=== PATIENT | female | born 1960 | race Two or more races ===

== ENCOUNTER → 2024-08-01 | Outpatient (CLI) | payer OTHER, MEDICAID | END | disposition home or self-care (01) | LOC: Rad HDHVI 14:33 | PROVIDERS: ATTEND Internal Medicine Cardiovascular Disease | DX: I10 Essential (primary) hypertension (principal) | CPT/HCPCS: 93880; 93925 ==

== ENCOUNTER → 2024-08-03 | Outpatient (CLI) | payer OTHER, MEDICAID | END | disposition home or self-care (01) | LOC: Rad HDHVI 13:45 | PROVIDERS: ATTEND Internal Medicine Cardiovascular Disease | DX: Z01.818 Encounter for other preprocedural examination (principal) | CPT/HCPCS: 93306 ==

== ENCOUNTER → 2024-08-15 | Outpatient (CLI) | payer OTHER, MEDICAID ==
[~2024-08-15] VITALS: Ht 152.4 cm; Wt 63.5 kg
[~2024-08-15] MED LIST: ADENOSINE 53 MG in GIVE UN-DILUTED 0 ML IV ONE; ADENOSINE 90 MG/30 ML INJ IV ONE; AML5T PO; B-CO-5 OR; CEPH500C PO; DOXE25CA2 PO; ERGO1CAP23 PO; FERR1TAB17 PO; FURO1TAB31 PO; GENT0.1C3 TOP; HEP1I IV; INSLANTI SC; INSU100I54 SC; LACT10PA2 PO; LOSA-535 PO; METO25TA93 PO
== END | disposition home or self-care (01) ==
LOC: Rad HDHVI 13:40
PROVIDERS: ATTEND Internal Medicine Cardiovascular Disease
DX: I10 Essential (primary) hypertension (principal); E11.9 Type 2 diabetes mellitus without complications; Z13.9 Encounter for screening, unspecified
CPT/HCPCS: 78452; 93005; 93017; A9500; J0153; 96374; 96375

== ENCOUNTER → 2024-09-10 | Outpatient (CLI) | payer OTHER, MEDICAID ==
[~2024-09-10] MED LIST changes: -ADENOSINE 53 MG in GIVE UN-DILUTED 0 ML IV ONE; -ADENOSINE 90 MG/30 ML INJ IV ONE
[2024-09-10] MEDS: MIDAZOLAM HCL 2MG/2ML 2ml VIAL (1mg/ml) ONE (15:35)
[2024-09-10] MEDS: fentaNYL CITRATE 100 MCG/2 ML VL ONE (15:35)
--- NOTE | 2024-09-10 16:06 | DVH ---
Procedure: CT CHEST WITHOUT CONTRAST Reason for study/Clinical History: KIDNEY TRANSPLANT LIST REQUIREMENT Comparison Study: None available at time of dictation. Exam Date: 09/10/2024 03:08 PM TECHNIQUE: Multidetector CT of the chest was performed from the lung apices to the upper abdomen with out the use of intravenous contract. Axial, coronal and sagittal multiplanar reformats were performed . Radiation Dose Information: CT Dose: CTDI volume is 7.19 mGy. Dose-length product is 283.95 mGy*cm The dose indicators for CT are the volume Computed Tomography (CT) Dose Index (CTDIvol) and the Dose Length Product (DLP), and are measured in units of mGy and mGy-cm, respectively. These indicators are not patient dose, but values generated from the CT scanner acquisition factors. The report includes radiation exposure data for exposures received during this examination. FINDINGS: Lower neck: Normal thyroid. Lungs: No focal consolidation, pleural effusion or pneumothorax. Heart/Vascular Structures: Normal heart size. No pericardial effusion. Lymph Nodes: No adenopathy Pleura: No pleural effusion or significant pneumothorax. Musculoskeletal: No acute osseous abnormality. Soft tissues: Normal. Upper abdomen: Fluid and food distended stomach. IMPRESSION: 1. No acute intrathoracic abnormality. 2. No CT findings to suggest active pulmonary tuberculosis. 3. Compression fracture T11; age indeterminate. 4. Mild compression of L2; age indeterminate. Radiation optimization: All CT scans at this facility use at least one of these dose optimization jemima hniques: automated exposure control mA and/or kV adjustment per patient size (includes targeted exam s where dose is matched to clinical indication) or iterative reconstruction.
== END | disposition home or self-care (01) ==
LOC: Rad HDHVI 15:03
PROVIDERS: ATTEND Internal Medicine Cardiovascular Disease
DX: S22.080A Wedge compression fracture of T11-T12 vertebra, initial encounter for closed fracture (principal); M48.8X6 Other specified spondylopathies, lumbar region; K31.89 Other diseases of stomach and duodenum; X58.XXXA Exposure to other specified factors, initial encounter; Y93.89 Activity, other specified; Y92.89 Other specified places as the place of occurrence of the external cause; Y99.8 Other external cause status
CPT/HCPCS: 71250; J2250

== ENCOUNTER → 2024-09-13 | Day surgery (SDC) | payer OTHER, MEDICAID ==
[2024-09-07 15:42] LABS: Urine Bacteria None Seen /hpf (None Seen)
[2024-09-07 15:49] LABS: Basophils # (auto) 0.1 10 ^3/uL (0-0.2); Eosinophils # (auto) 0.2 10 ^3/uL (0-0.8); Eosinophils % (auto) 3.1 % (0.0-7.0); Hematocrit 32.6 % (36.0-46.0); Hemoglobin 10.5 g/dL (12.2-16.2); Lymphocytes # (auto) 1.9 10 ^3/uL (0.4-5.4); Lymphocytes % (auto) 24.5 % (10.0-50.0); Mean Corpuscular Hemoglobin 25.6 pg (28.0-32.0); Mean Corpuscular Hgb Conc. 32.2 g/dL (32.0-36.0); Mean Corpuscular Volume 79.4 fL (80.0-100.0); Monocytes # (auto) 0.6 10 ^3/uL (0-1.3); Monocytes % (auto) 7.5 % (0.0-12.0); Neutrophils # (auto) 4.9 10 ^3/uL (1.6-8.6); Neutrophils % (auto) 63.9 % (37.0-80.0); Platelet Count (auto) 303 10^3/uL (140-450); Red Blood Cells 4.11 10^6/uL (4.0-5.20); Red Cell Distribution Width 15.6 % (11.8-14.3); White Blood Cell 7.6 10^3/uL (4.4-10.8)
[2024-09-07 16:03] LABS: INR 0.93 (0.9-1.15); Partial Thromboplastin Time 25.8 SEC (24.5-34.5); Prothrombin Time 9.9 sec (9.3-11.8)
[2024-09-07 16:14] LABS: Alanine Aminotransferase 14 U/L (7-40); Albumin 4.2 g/dL (3.2-4.8); Alkaline Phosphatase 62 U/L (46-116); Anion Gap 16 (5-15); BUN/Creatinine Ratio 9.2 (10.0-20.0); Calcium 8.9 mg/dL (8.7-10.4); Carbon Dioxide 24 mmol/L (20-31); Total Protein 7.1 g/dL (5.7-8.2)
[2024-09-07 16:20] LABS: Urine Blood TRACE /uL (Negative); Urine Clarity Clear (Clear); Urine Color Light-Yellow (Yellow); Urine Hyaline Cast FEW /lpf (0 - 2); Urine Protein, UAD 2+ (Negative); Urine Specific Gravity 1.014 (1.001-1.035); Urine Squamous Epithelial Cell FEW /hpf (<5); Urine Urobilinogen Normal (Negative); Urine WBC 2 /HPF (0-5)
[2024-09-07 16:30] LABS: Aspartate Aminotransferase 12 U/L (13-40); Bilirubin, Total 0.2 mg/dL (0.2-1.0); Chloride 96 mmol/L (98-107); Glucose 142 mg/dL (74-106); Sodium 136 mmol/L (136-145)
[2024-09-07 16:37] LABS: Blood Urea Nitrogen 80 mg/dL (9-23)
[~2024-09-13] VITALS: Ht 152.4 cm; Wt 63.5 kg
[~2024-09-13] MED LIST changes: +MEPERIDINE HCL (25 MG/ML) 1ML VIAL ONE; +METO-281 PO; +MIDAZOLAM HCL 2MG/2ML 2ml VIAL (1mg/ml) ONE; +PANT40T PO; +PROPOFOL 10 MG/ML 20 ML IV ONE; +SUCR1TAB31 PO
--- NOTE | 2024-09-13 09:08 | DVHHP2 ---
GI H&P Pre-Op Assessment Date: 09/13/24 Chief complaint: colon cancer screening HPI: per clinic note Past medical history: per clinic note Past surgical history: per clinic note Family history: per clinic note Physical exam: General: NAD, AAOX3 HEENT: PERRL, no scleral icterus, normal hearing, gums without lesions or bleeding, oropharynx clear without erythema or exudate. Neck: Supple without enlargement of the thyroid, or lymphadenopathy. Chest: Normal size and shape, no tenderness, lung dee clear to auscultation and percussion, nonlabored breathing. Heart: RRR, no murmur Abdomen: non-distended, no tenderness to palpation, +BS, no hepatosplenomegaly Extremities: no edema Neurological: CN II-XII intact, sensation intact in all extremities, 5+ strength in all extremities Skin: No rashes, No jaundice Assessment: - colon cancer screening Plan: - Colonoscopy - Risks (bleeding, infection, perforation, reaction to sedation medications and cardiopulmonary arrest) and benefit of the procedure were explained to patient. Patient agrees to undergo the procedure. WILLA RAMIREZ MD Sep 13, 2024 09:08
[2024-09-13 10:56] VITALS: PULSE 94; RESP 17; TEMP 97.3; O2SAT 100
--- NOTE | 2024-09-13 10:57 | DVHOP2 ---
Operative Report DATE OF OPERATION: 09/13/24 PROCEDURE: Colonoscopy. PREOPERATIVE INDICATION: The patient is a 63 -year-old female undergoing colonoscopy for colon cancer screening. POSTOPERATIVE DIAGNOSES: 1. 2 mm sigmoid polyp was removed with cold biopsy forceps. 2. 4 mm sigmoid polyp was removed with hot snare and retrieved. PROCEDURE PERFORMED BY: Raheel Ashby M.D. SCOPE: Olympus videocolonoscope. ASA CLASS: 4 PREOPERATIVE MEDICATIONS: MAC with Dr Reed PROCEDURE IN DETAIL: After obtaining an informed consent, the patient was placed on left lateral decubitus position. She was then sedated with the above medications. A rectal examination was performed that was normal. The colonoscope was then passed through the anus into the rectosigmoid and through the descending, transverse, and ascending colon up to the cecum with visualiza tion of the appendiceal orifice, base of the cecum and the ileocecal valve. A 2 mm sigmoid polyp was removed with cold biopsy forceps. A 4 mm sigmoid polyp was removed with hot snare and retrieved. The colonoscope was then withdrawn. The patient tolerated the procedure well without difficulty. WITHDRAWAL TIME: 17 minutes QUALITY OF THE PREP: Dennard Bowel Prep score: 7 COMPLICATIONS : None SPECIMENS: Colon polyps DISPOSITION: D/C to home PLAN: 1. Repeat colonoscopy base on biopsy result RAHEEL ASHBY MD Sep 13, 2024 10:57
--- NOTE | 2024-09-13 10:58 | DVHDS2 ---
Physician Discharge Progress N Final Diagnosis: Colon polyps Operations or Procedures: Operations or Procedures Colonoscopy with cold biopsy polypectomy and hot snare polypectomy. Condition on Discharge: Good Disposition: Home Discharge Instructions: Diet: Regular Activity: No Restrictions, As Tolerated Medications: Resume with previous home medications Follow Up Care: Discharge Statement: "Patient was advised to return to the ER or call 911 if any headaches, dizziness, shortness of breath, chest pain, abdominal pain, bleeding, fevers, or worsening of medical condition. Patient was counseled about treatment plan, medications, possible side effects, patientverbalized understanding. All questions were answered to the best of my ability. This discharge took greater then 30 minutes in planning, reviewing documentation, counseling the patient, and discussing with other team members." WILLA RAMIREZ MD Sep 13, 2024 10:57
[2024-09-13 11:06] VITALS: PULSE 90; PULSE 94; RESP 12; RESP 17; O2SAT 100
[2024-09-13 11:25] VITALS: BP 119/62; PULSE 91; RESP 12; O2SAT 100
== END | disposition home or self-care (01) ==
LOC: GI 08:03
PROVIDERS: ATTEND Internal Medicine Gastroenterology
DX: Z12.11 Encounter for screening for malignant neoplasm of colon (principal); K63.5 Polyp of colon; I12.0 Hypertensive chronic kidney disease with stage 5 chronic kidney disease or end stage renal disease; E11.22 Type 2 diabetes mellitus with diabetic chronic kidney disease; N18.6 End stage renal disease; Z79.899 Other long term (current) drug therapy; Z99.2 Dependence on renal dialysis; Z98.891 History of uterine scar from previous surgery; Z98.890 Other specified postprocedural states
CPT/HCPCS: 36415; 45380; 45385; 80053; 81001; 82962; 85025; 85610; 85730; 88305; J2175; J2250; J2704; J7030

== ENCOUNTER 2024-09-14 23:56 | Inpatient (IN) | payer OTHER, MEDICAID ==
[~2024-09-14] VITALS: Ht 152.4 cm; Wt 62.2 kg
[~2024-09-14 23:56] MED LIST changes: -MEPERIDINE HCL (25 MG/ML) 1ML VIAL ONE; -METO-281 PO; -MIDAZOLAM HCL 2MG/2ML 2ml VIAL (1mg/ml) ONE; -PANT40T PO; -PROPOFOL 10 MG/ML 20 ML IV ONE; -SUCR1TAB31 PO
--- NOTE | 2024-09-15 00:27 | ED.PDOC ---
Epistaxis- HPI HPI Comments 63-year-old female came to emergency room via EMS with nosebleed. Patient states for the past hour, she has been having persistent bilateral epistaxis. She does have history of epistaxis but never this long. She tried pinching and applying ice packs but offered no relief. Denies any trauma. Denies using any blood thinners. B;lood pressure on scene was 119/64 mmHg Chief Complaint: Nose Bleed Time Seen by MD: 00:24 Reviewed Notes: Medical Coding Manager Notes Allergies: Coded Allergies: No Known Drug Allergy (Verified Allergy, Unknown, 08/15/24) Home Meds Reported Medications B-Complex W/ C & Folic Acid (Mimi-Harish) Tab, 1 TAB OR TID, TAB 09/07/24 Heparin Sodium (Porcine) (Heparin Sodium) 1,000 Unit/Ml Inj, IV, INJ 09/07/24 Insulin Lispro (Insulin Lispro Kwikpen) 100 Unit/Ml Inj, SC, INJ patient on sliding scale 09/07/24 Gentamicin Sulfate (Gentamicin Sulfate) 0.1 % Cre, 1 APPLIC TOP DAILY, #30 GRAMS 1 Refill 09/07/24 Ergocalciferol (VITAMIN D 75048 UNIT) 50,000 [place], 66478 UNIT PO QWEEKLY, CAP 09/07/24 Doxepin Hcl (Doxepin Hcl) 25 Mg Cap, 1 CAP PO DAILY, #30 CAP 1 Refill 09/07/24 Cephalexin Monohydrate (Cephalexin) 500 Mg Cap, 1 CAP PO BID, #40 CAP 09/07/24 Ferric Citrate (Auryxia) 210 Mg Tab, 420 MG PO TID, TAB 09/07/24 Furosemide (Lasix) 40 Mg Tab, 40 MG PO BID, TAB 09/07/24 Amlodipine Besylate (NORVASC TABLET) 5 Mg Tb, 10 MG PO DAILY, TAB 09/07/24 Metoprolol Succinate (Metoprolol Succinate Er) 25 Mg Tab, 25 MG PO DAILY for 30 Days, MG 09/07/24 Losartan Potassium (Losartan Potassium) 100 Mg Tab, 100 MG PO DAILY for 30 Days, MG 09/07/24 Insulin Glargine (Lantus) 100 Unit/Ml Inj, 15 UNIT SC, INJ 09/07/24 Lactulose (Lactulose) 10 Gm Tyson, 10 GM PO, PACK 09/07/24 Information Source: Patient, Emergency Med Personnel Mode of Arrival: EMS Severity: Streaking Timing: Minutes Duration: Since onset Prehospital treatment: None Location: Right naris, Left naris Mechanism: Spontaneous onset History of: Nasal bleeding Nose: Swelling, Ecchymosis Nose: Intranasal/Septum: Blood Bleeding Status: Active bleeding Bleeding Amount: Moderate Source: Right, Left Vital Signs Vital Signs Date Time Temp Pulse Resp B/P (MAP) Pulse Ox O2 Delivery O2 Flow Rate FiO2 09/15/24 06:53 97.7 09/15/24 06:38 Room Air* 0 21 09/15/24 06:12 92 24 131/58 (82) 98 Physical Exam General: Awake, alert and oriented. No acute distress. Skin: Skin in warm, dry and intact. Appropriate color for ethnicity. Nailbeds pink with no cyanosis. HEENT: The head is normocephalic and atraumatic. Conjunctivae are clear without exudates or hemorrhage. Sclera is non-icteric. EOM are intact. No signs of nystagmus. Eyelids are normal in appearance without swelling or lesions. Oral mucosa is pink and moist Neck: The neck is supple with normal range of motion. No JVD. Cardiac: Heart rate and rhythm are normal. No murmurs, gallops, or rubs are auscultated. Respiratory: No signs of respiratory distress. Lung sounds are clear in all lobes bilaterally without rales, ronchi, or wheezes. Abdominal: Abdomen is soft, non-tender without distention. Bowel sounds are present and normoactive in all four quadrants. Extremities: Upper and lower extremities are atraumatic in appearance without deformity or edema. Neurological: The patient is awake, alert and oriented to person, place, and time with normal speech. Speech is clear. There is no facial asymmetry. Psychiatric: Appropriate mood and affect. Good judgement and insight. No visual or auditory hallucinations. Review of Systems REVIEW OF SYSTEMS: No fever, no chills, or fatigue HEENT: No sore throat, no earache, no congestion, no neck pain.(+) nose bleed Cardiac: No chest pain. No palpitations. Lungs: No shortness of breath, no cough. GI: No nausea, no vomiting, no diarrhea, no constipation, no abdominal pain : No dysuria, frequency, or urgency. No hematuria. Musculoskeletal: No joint pain , no joint swelling, no extremity edema. Skin: No rash, no itching. Neuro: No headache, no dizziness, no weakness Past Medical History PAST MEDICAL HISTORY: DM, ESRD, HTN Surgical History (Other): Peritoneal dialysis DENTURE MODEL MAKER History: Denies all DENTURE MODEL MAKER Hx Family History Family History: Reviewed,noncontributory to illness Social History Smoker: Non-Smoker Alcohol: Denies ETOH Use Drugs: Denies Drug Use Lives In: Home Was a procedure done? Was a procedure done?: No Differential Diagnosis (NSB) Differential Diagnosis: Anterior Nasal Bleed, Posterior Nasal Bleed X-Ray, Labs, Meds, VS Vital Signs Date Time Temp Pulse Resp B/P (MAP) Pulse Ox O2 Delivery O2 Flow Rate FiO2 09/15/24 06:53 97.7 09/15/24 06:38 Room Air* 0 21 09/15/24 06:12 97.7 92 24 131/58 (82) 98 97.7 09/15/24 04:14 94 09/14/24 23:56 98.3 92 20 119/64 (82) 97 Lab Test 09/15/24 05:38 09/15/24 00:32 Range/Units Hemoglobin A1c 8.1 H <5.7 % A1C Uric Acid 5.6 3.1-7.8 mg/dL Phosphorus Level 14.8 H 2.4-5.1 mg/dL Troponin I High Sensitivity 10 11 </=34 ng/L Lipase 54 H 12-53 U/L White Blood Count 10.4 4.4-10.8 10^3/uL Red Blood Count 3.75 L 4.0-5.20 10^6/uL Hemoglobin 9.9 L 12.2-16.2 g/dL Hematocrit 29.5 L 36.0-46.0 % Mean Corpuscular Volume 78.6 L 80.0-100.0 fL Mean Corpuscular Hemoglobin 26.4 L 28.0-32.0 pg Mean Corpuscular Hemoglobin Concent 33.6 32.0-36.0 g/dL Red Cell Distribution Width 15.4 H 11.8-14.3 % Platelet Count 349 140-450 10^3/uL Mean Platelet Volume 8.1 6.9-10.8 fL Neutrophils (%) (Auto) 77.8 37.0-80.0 % Lymphocytes (%) (Auto) 13.5 10.0-50.0 % Monocytes (%) (Auto) 6.5 0.0-12.0 % Eosinophils (%) (Auto) 1.6 0.0-7.0 % Basophils (%) (Auto) 0.6 0.0-2.0 % Neutrophils # (Auto) 8.1 1.6-8.6 10 ^3/uL Lymphocytes # (Auto) 1.4 0.4-5.4 10 ^3/uL Monocytes # (Auto) 0.7 0-1.3 10 ^3/uL Eosinophils # (Auto) 0.2 0-0.8 10 ^3/uL Basophils # (Auto) 0.1 0-0.2 10 ^3/uL Nucleated Red Blood Cells 0.0 % Prothrombin Time 10.2 9.3-11.8 sec Prothrombin Time INR 0.96 0.9-1.15 Sodium Level 135 L 136-145 mmol/L Potassium Level 3.9 3.5-5.1 mmol/L Chloride Level 94 L 98-107 mmol/L Carbon Dioxide Level 21 20-31 mmol/L Anion Gap 20 H 5-15 Blood Urea Nitrogen 65 H 9-23 mg/dL Creatinine 8.82 H 0.550-1.02 mg/dL Glomerular Filtration Rate Calc 5 >90 mL/min BUN/Creatinine Ratio 7.4 L 10.0-20.0 Serum Glucose 216 H 74-106 mg/dL Calcium Level 9.3 8.7-10.4 mg/dL Time of 1ST Reevaluation: 00:21 Reevaluation 1ST: Unchanged Patient Education/Counseling: Diagnosis, Treatment Family Education/Counseling: No Family Present Departure 1 Departure Time of Disposition: 02:53 Impression: Primary Impression: Epistaxis Additional Impression: Chest pain Disposition: 09 ADMITTED INPATIENT Admit to: Tele Condition: Guarded Additional Instructions: ED DISCHARGE INSTRUCTIONS Instructions: Please read all instructions provided in this packet carefully. Although you have been discharged from the Emergency Department, this does not mean that you have a "clean bill of health". No definitive diagnosis for your symptoms has been made today. It is possible that you are in the process of developing a serious illness. This is why you must return to the ED without fail if any new or worsening symptoms (especially if your symptoms include chest pain, trouble breathing, abdominal pain, fever, headache, confusion, trouble seeing, or trouble walking) It is also very important that you see a primary care doctor within the next 3-5 days to follow up. If you are unable to get an appointment, return to the ED for re-evaluation. Nosebleeds: Care Instructions Overview Nosebleeds are common, especially if you have colds or allergies. Many things can cause a nosebleed. Some nosebleeds stop on their own with pressure. Others need packing. Some get cauterized (sealed). If you have gauze or other packing materials in your nose, you will need to follow up with your doctor to have the packing removed. You may need more treatment if you get nosebleeds a lot. Follow-up care is a rich part of your treatment and safety. Be sure to make and go to all appointments, and call your doctor if you are having problems. It's also a good idea to know your test results and keep a list of the medicines you take. How can you care for yourself at home? If you get another nosebleed: Gently blow your nose to clear any clots. Sit up and tilt your head slightly forward. This keeps blood from going down your throat. Use your thumb and index finger to pinch the front, soft part of your nose shut for at least 15 minutes. Use a clock. Do not check to see if the bleeding has stopped before the 15 minutes are up. If the bleeding has not stopped, pinch your nose shut for another 10 to 15 minutes. Using a nasal decongestant spray such as oxymetazoline (Afrin) before pinching your nose can also help to stop the bleeding. Be safe with medicines. Read and follow all instructions on the label. When the bleeding has stopped, try not to pick, rub, or blow your nose for several hours. Avoiding these things helps keep your nose from bleeding again. To prevent nosebleeds Do not blow your nose too hard. Try not to lift or strain after a nosebleed. Raise your head on a pillow while you sleep. Put a thin layer of a saline- or water-based nasal gel, such as NasoGel, inside your nose. Put it on the septum, which divides your nostrils. This will prevent dryness that can cause nosebleeds. Use a vaporizer or humidifier to add moisture to your bedroom. Follow the directions for cleaning the machine. Do not use aspirin, ibuprofen (Advil, Motrin), or naproxen (Aleve) for 36 to 48 hours after a nosebleed unless your doctor tells you to. You can use acetaminophen (Tylenol) for pain relief. Talk to your doctor about stopping any other medicines you are taking. Some medicines may make you more likely to get a nosebleed. Do not use cold medicines or nasal sprays without first talking to your doctor. They can make your nose dry. Do not snort tobacco, drugs, or any other drying substances up your nose. When should you call for help? Call 911 anytime you think you may need emergency care. For example, call if: You passed out (lost consciousness). Call your doctor now or seek immediate medical care if: Your nose is still bleeding after you have pinched the nose shut 2 times for 15 minutes each time (30 minutes total). There is a lot of blood running down the back of your throat even after you pinch your nose and tilt your head forward. You feel weak or lightheaded. You have a nosebleed after a head injury. Watch closely for changes in your health, and be sure to contact your doctor if: You get nosebleeds often, even if they stop. You do not get better as expected. CHEST PAIN EDUCATION There are many things that can cause chest pain. Some are not serious and will get better on their own in a few days. But some kinds of chest pain need more testing and treatment. Your doctor may have recommended a follow-up visit in the next few days. If you are not getting better, you may need more tests or treatment. Even though your doctor has released you, you still need to watch for any proble ms. The doctor carefully checked you, but sometimes problems can develop later. If you have new symptoms or if your symptoms do not get better, get medical care right away. If you have worse or different chest pain or pressure that lasts more than 5 minutes or you passed out (lost consciousness), call 911 or seek other emergency help right away. A medical visit is only one step in your treatment. Even if you feel better, you still need to do what your doctor recommends, such as going to all suggested follow-up appointments and taking medicines exactly as directed. This will help you recover and help prevent future problems. How can you care for yourself at home? Rest until you feel better. Take your medicine exactly as prescribed. Call your doctor if you think you are having a problem with your medicine. Do not drive after taking a prescription pain medicine. When should you call for help? Call 911 if: You passed out (lost consciousness). You have severe difficulty breathing. You have symptoms of a heart attack. These may include: Chest pain or pressure, or a strange feeling in your chest. Sweating. Shortness of breath. Nausea or vomiting. Pain, pressure, or a strange feeling in your back, neck, jaw, or upper belly or in one or both shoulders or arms. Lightheadedness or sudden weakness. A fast or irregular heartbeat. After you call 911, the service unit operator oil well may tell you to chew 1 adult-strength or 2 to 4 low-dose aspirin. Wait for an ambulance. Do not try to drive yourself. Call your doctor now or seek immediate medical care if: You have any trouble breathing. You have new or different chest pain. You are dizzy or lightheaded, or you feel like you may faint. Watch closely for changes in your health, and be sure to contact your doctor if you do not get better as expected. Current as of: February 08, 2024 Author: [employer] Staff? Discharged With: Self Comments 63-year-old female presented to the emergency department via EMS with epistaxis with spontaneously resolved during the ED observation. Prior to discharge patient is started reporting chest pain. Initial troponin 11. EKG negative for acute ischemic changes. Repeat troponin and EKG pending. Patient admitted for further treatment, evaluation and monitoring. Critical Care Note Critical Care Time?: Yes (35 min-critical care time only) Critical care comment: Active epistaxis Stability Stability form required: No Heart Score Heart Score: Heart Score Response (Comments) Value History Moderate Suspicious 1 EKG Normal 0 Age 45-64 1 Risk Factors >3 or Hx ASHD 2 Troponin Normal limit 0 Total 4 I personally scribed for JASMIN PENA MD ([email or web address]) on 09/15/24 at 00:27. Electronically submitted by Justin Erazo ([email or web address]). JASMIN PENA MD Sep 15, 2024 00:27 SOHEILA JADE DO Sep 15, 2024 06:15
[2024-09-15 00:42] LABS: Basophils # (auto) 0.1 10 ^3/uL (0-0.2); Basophils % (auto) 0.6 % (0.0-2.0); Lymphocytes # (auto) 1.4 10 ^3/uL (0.4-5.4)
[2024-09-15 00:44] LABS: Eosinophils # (auto) 0.2 10 ^3/uL (0-0.8); Eosinophils % (auto) 1.6 % (0.0-7.0); Hematocrit 29.5 % (36.0-46.0); Hemoglobin 9.9 g/dL (12.2-16.2); Lymphocytes % (auto) 13.5 % (10.0-50.0); Mean Corpuscular Hemoglobin 26.4 pg (28.0-32.0); Mean Corpuscular Hgb Conc. 33.6 g/dL (32.0-36.0); Mean Corpuscular Volume 78.6 fL (80.0-100.0); Monocytes # (auto) 0.7 10 ^3/uL (0-1.3); Monocytes % (auto) 6.5 % (0.0-12.0); Neutrophils # (auto) 8.1 10 ^3/uL (1.6-8.6); Neutrophils % (auto) 77.8 % (37.0-80.0); Platelet Count (auto) 349 10^3/uL (140-450); Red Blood Cells 3.75 10^6/uL (4.0-5.20); Red Cell Distribution Width 15.4 % (11.8-14.3); White Blood Cell 10.4 10^3/uL (4.4-10.8)
[2024-09-15 00:50] LABS: Potassium 3.9 mmol/L (3.5-5.1)
[2024-09-15 00:51] LABS: Anion Gap 20 (5-15); Calcium 9.3 mg/dL (8.7-10.4); Carbon Dioxide 21 mmol/L (20-31)
[2024-09-15 00:56] LABS: BUN/Creatinine Ratio 7.4 (10.0-20.0); INR 0.96 (0.9-1.15); Prothrombin Time 10.2 sec (9.3-11.8)
[2024-09-15 00:57] LABS: Blood Urea Nitrogen 65 mg/dL (9-23); Chloride 94 mmol/L (98-107); Glucose 216 mg/dL (74-106); Sodium 135 mmol/L (136-145)
[2024-09-15] MEDS: SILVER NITRATE-POTAS NITRA STICK TOP ONE (03:16)
[2024-09-15] MEDS: OXYMETAZOLINE HCL 0.05 % NASAL SPRAY 15ML EACHNOSTRI ONE (03:18)
--- NOTE | 2024-09-15 04:28 | DVH ---
CHEST RADIOGRAPH Indication: Chest pain Technique: Single frontal view of the chest was obtained Comparison: None IMPRESSION: Heart appears normal in size. The lungs appear clear without focal airspace opacity, effusion, or pn eumothorax
--- NOTE | 2024-09-15 05:56 | ECG ---
[facility] Test Date: 2024-09-15 Test Time: 04:14:19 Pat Name: ELMER MELGOZA Department: ER Room: [address] [place] [address] Gender: F Analytical Data Scientist: TJ : 1960 Requested By: JASMIN PENA Order Number: [id number] Reading MD: Jg Hammer Measurements Intervals [place] Rate: 94 P: 69 HI: 153 QRS: 57 QRSD: 76 T: 81 QT: 386 QTc: 483 Interpretive Statements Sinus rhythm Electronically Signed On 09-15-2024 18:06:40 PST by Jg Hammer Please click the below link to view image of tracing.
[2024-09-15] MEDS: ONDANSETRON ODT 4 MG TAB PO ONE (06:43)
[2024-09-15] MEDS: ACETAMINOPHEN 325 MG TAB PO ONE (06:53)
[2024-09-15] MEDS ORDERED: NITROGLYCERIN 0.4 MG SL TAB SL PRN (07:15)
[2024-09-15] MEDS ORDERED: ACETAMINOPHEN 500 MG TAB or CAP PO PRN (07:15)
[2024-09-15] MEDS ORDERED: MORPHINE SULFATE INJ 2 MG/ml SYRG IV PRN (07:15)
[2024-09-15] MEDS ORDERED: DEXTROSE (50%) 50ML SYRG IV PRN (07:30)
--- NOTE | 2024-09-15 07:35 | DVHHP2 ---
History of Present Illness Reason for Visit: Chest pain and epistaxis History of Present Illness The patient was a 63-year-old female presenting to the emergency room with severe epistaxis that lasted over 1 hour in addition to burning in her chest. Patient states that she was had intermittent substernal chest burning, for the past one week. Patient denies having any dizziness, nausea, near-syncope, or diaphoresis. Patient was going to be discharged from the emergency room when she began having this chest burning. She reports that she did have outpatient cardiology workup by Dr. Calero without any acute findings per the patient. Echocardiogram was reviewed, essentially unremarkable. Twelve lead ECG is currently pending. Significant history of the patient includes ESRD with peritoneal dialysis, hypertension, diabetes mellitus. Patient will be admitted for further diagnostic testing. Cardiovascular: HTN, hyperipidemia Renal/: Chronic renal failure Endocrine: Diabetes Past Surgical History: None Family History: None (Noncontributory) Smoke: No ALCOHOL: none Drugs: None Lives: with Family Review of Systems Constitutional: No: Fever, Chills, Sweats, Weakness, Malaise, Other Eyes: No: Pain, Vision change, Conjunctivae inflammation, Eyelid inflammation, Other, Redness ENT: Other (Epistaxis); No: Ear pain, Ear discharge, Nose pain, Nose discharge, Nose congestion, Mouth pain, Mouth swelling, Throat pain, Throat swelling Respiratory: No: Cough, Dry, Shortness of breath, SOB with excertion, Wheezing, Hemoptysis, Pleuritic Pain, Sputum, Wheezing, Other Cardiovascular: Chest Pain Genitourinary: No Dysuria, No Frequency, No Incontinence, No Hematuria, No Retention, No Other Musculoskeletal: No: other, neck pain, shoulder pain, arm pain, back pain, hand pain, leg pain, foot pain Skin: No: Rash, Lesions, Jaundice, Bruising, Other Neurological: No: Weakness, Numbness, Incoordination, Change in speech, Confusion, Seizures, Other Allergies: Coded Allergies: No Known Drug Allergy (Verified Allergy, Unknown, 08/15/24) Medications Current Medications Medications Dose Ordered Sig/Lizzie Route Start Time Stop Time Status Last Admin Dose Admin Nitroglycerin 0.4 mg Q5MINP PRN SL 09/15/24 07:15 UNV Morphine Sulfate 2 mg Q30M PRN IV 09/15/24 07:15 UNV Pantoprazole Sodium 40 mg BID IV 09/15/24 07:15 UNV Morphine Sulfate 1 mg Q4HPRN PRN IV 09/15/24 07:15 UNV Acetaminophen/ Hydrocodone Bitart 1 tab Q6HPRN PRN PO 09/15/24 07:15 UNV Acetaminophen 500 mg Q8HP PRN PO 09/15/24 07:15 UNV Ondansetron HCl 4 mg Q6HP PRN IV 09/15/24 07:15 UNV Amlodipine Besylate 10 mg DAILY PO 09/15/24 10:00 UNV Furosemide 40 mg BID PO 09/15/24 10:00 UNV Insulin Glargine 15 units DAILY SC 09/15/24 10:00 UNV Patient Own Medication 25 mg DAILY PO 09/15/24 10:00 UNV Exam Vital Signs Vital Signs Date Time Temp Pulse Resp B/P (MAP) Pulse Ox O2 Delivery O2 Flow Rate FiO2 09/15/24 06:53 97.7 09/15/24 06:38 Room Air* 0 21 09/15/24 06:12 92 24 131/58 (82) 98 General Appearance: Alert, Oriented X3, Cooperative, No acute distress HEENT: Atraumatic, PERRLA Respiratory: Clear to auscultation, Normal air movement Cardiovascular: Normal S1, Normal S2 Abdominal: Normal bowel sounds, Soft, No tenderness, No hepatospenomegaly Extremities: No clubbing, No cyanosis, No edema Neuro: Normal gait, Normal speech, Strength at 5/5 X4 ext, Normal tone, Sensation intact, Cranial nerves 3-12 NL Psych/Mental Status: Mental status NL, Mood NL Labs/Xrays Labs Test 09/15/24 05:38 09/15/24 00:32 Range/Units Troponin I High Sensitivity 10 </=34 ng/L White Blood Count 10.4 4.4-10.8 10^3/uL Red Blood Count 3.75 L 4.0-5.20 10^6/uL Hemoglobin 9.9 L 12.2-16.2 g/dL Hematocrit 29.5 L 36.0-46.0 % Mean Corpuscular Volume 78.6 L 80.0-100.0 fL Mean Corpuscular Hemoglobin 26.4 L 28.0-32.0 pg Mean Corpuscular Hemoglobin Concent 33.6 32.0-36.0 g/dL Red Cell Distribution Width 15.4 H 11.8-14.3 % Platelet Count 349 140-450 10^3/uL Mean Platelet Volume 8.1 6.9-10.8 fL Neutrophils (%) (Auto) 77.8 37.0-80.0 % Lymphocytes (%) (Auto) 13.5 10.0-50.0 % Monocytes (%) (Auto) 6.5 0.0-12.0 % Eosinophils (%) (Auto) 1.6 0.0-7.0 % Basophils (%) (Auto) 0.6 0.0-2.0 % Neutrophils # (Auto) 8.1 1.6-8.6 10 ^3/uL Lymphocytes # (Auto) 1.4 0.4-5.4 10 ^3/uL Monocytes # (Auto) 0.7 0-1.3 10 ^3/uL Eosinophils # (Auto) 0.2 0-0.8 10 ^3/uL Basophils # (Auto) 0.1 0-0.2 10 ^3/uL Nucleated Red Blood Cells 0.0 % Prothrombin Time 10.2 9.3-11.8 sec Prothrombin Time INR 0.96 0.9-1.15 Sodium Level 135 L 136-145 mmol/L Potassium Level 3.9 3.5-5.1 mmol/L Chloride Level 94 L 98-107 mmol/L Carbon Dioxide Level 21 20-31 mmol/L Anion Gap 20 H 5-15 Blood Urea Nitrogen 65 H 9-23 mg/dL Creatinine 8.82 H 0.550-1.02 mg/dL Glomerular Filtration Rate Calc 5 >90 mL/min BUN/Creatinine Ratio 7.4 L 10.0-20.0 Serum Glucose 216 H 74-106 mg/dL Calcium Level 9.3 8.7-10.4 mg/dL Assessment/Plan Assessment/Plan Impression: -chest pain, atypical -ESRD with peritoneal dialysis -gap acidosis -primary hypertension -epistaxis -diabetes mellitus -anemia of chronic disease Plan: -admit to telemetry unit -serial troponin -EKG -PPI, Carafate -regular insulin sliding scale , Lantus -antihypertensives -repeat labs in a.m. -obtain patient's home PD equipment and continue treatment per Nephrology Total time spent with patient discussing and formulating plan of care: 35 minutes. This medical document was created using an electronic medical record system with [employer] computerized dictation system. Although this document has been carefully reviewed, there may still be some phonetic and typographical errors. These areas are purely typographical due to imperfections of the software programs, and do not reflect any compromise in the patient's medical care. Plan discussed with: Patient, Other (RN) My Orders Orders - DEBBIE S[facility]NC[facility]Z [employer] [facility] Procedure Category Date Status Time Admit ADMIT 09/15/24 Transmitted 07:15 Nitroglycerin PHA 09/15/24 Logged Sublingual (Ntrostat 07:15 Morphine Sulfate PHA 09/15/24 Logged Injection 07:15 Stat Ekg For Chest [facility] 09/15/24 In Process Pain 07:15 Notify Md Of Changes [facility] 09/15/24 In Process From Base 07:15 Mesmerist For [facility] 09/15/24 In Process 24 Hours 07:15 Emergency Dysrhythmia [facility] 09/15/24 In Process Protocol 07:15 Rhythm Strips Once [facility] 09/15/24 In Process Every Shift 07:15 Oxygen By Nasal RT 09/15/24 Transmitted Cannula 07:15 *Dr. Tati De Luna -Da CONS 09/15/24 Transmitted Estelle 07:15 Electrocardigram EKG 09/15/24 Logged 07:15 Electrocardigram EKG 09/15/24 Logged 08:15 Lipase LAB 09/15/24 Logged 07:15 Pantoprazole PHA 09/15/24 Logged (Protonix) 07:15 Morphine Sulfate PHA 09/15/24 Logged Injection 07:15 Hydrocodone-Acet PHA 09/15/24 Logged 5/325mg Tab ([place] 07:15 Acetaminophen Tab Or PHA 09/15/24 Logged Cap (Tylenol Tablet 07:15 Ondansetron Hcl PHA 09/15/24 Logged (Zofran) 07:15 Complete Blood Count LAB 09/16/24 Verified 04:00 Comprehensive LAB 09/16/24 Verified Metabolic Panel 04:00 Uric Acid LAB 09/15/24 Logged 07:15 Phosphorus LAB 09/15/24 Logged 07:15 Hemoglobin A1c LAB 09/15/24 Logged 07:15 Amlodipine Tablet PHA 09/15/24 Logged (Norvasc Tablet) 10:00 Furosemide Tablet PHA 09/15/24 Logged (Lasix Tablet) 10:00 Insulin Lantus PHA 09/15/24 Logged (Glargine) (Lantus) 10:00 (Nf) Metoprolol PHA 09/15/24 Logged Succinate (Metoprolol 10:00 Date of Service: Sep 15, 2024 Billing Provider: DEBBIE SÁNCHEZ NP Common Visit Codes: [id number] INP/OBS CARE (HIGH) DEBBIE SÁNCHEZ NP Sep 15, 2024 07:35
[2024-09-15 08:00] VITALS: PULSE 95
[2024-09-15 08:01] LABS: Phosphorus 14.8 mg/dL (2.4-5.1)
[2024-09-15] MEDS ORDERED: SUCRALFATE 1 GM/10 ML ORAL SUSP GT SCH (08:09)
[2024-09-15] MEDS: PANTOPRAZOLE 40 MG/10 ML VIAL INJ IV SCH (08:14)
[2024-09-15 08:33] LABS: Uric Acid 5.6 mg/dL (3.1-7.8)
[2024-09-15] MEDS: SUCRALFATE 1 GM TAB PO SCH (09:16)
[2024-09-15] MEDS: METOPROLOL SUCCINATE XL 50 MG TAB PO SCH (10:26)
[2024-09-15] MEDS: FUROSEMIDE 40 MG TAB PO SCH (10:27)
[2024-09-15] MEDS: amLODIPine BESYLATE 5 MG TAB PO SCH (10:27)
[2024-09-15] MEDS: INSULIN LANTUS (GLARGINE) 1 /0.01ml (100units/ml) SC SCH (10:28)
[2024-09-15] MEDS: ACCU-CHEK COMFORT CURVE STRIP VI SCH (11:50)
[2024-09-15] MEDS: InsuLIN REG 1unit/0.01ml Soln (100units/ml) SC SCH (11:55)
--- NOTE | 2024-09-15 14:25 | DVHPN2 ---
Reviewed: Care Plan, H&P, Labs, Medications, Previous Orders, Radiology Changes from previous H/P or p: No Changes Eyes: No Pain, No Vision change, No Conjunctivae inflammation, No Eyelid inflammation, No Other, No Redness ENT: No Ear pain, No Ear discharge, No Nose pain, No Nose discharge, No Nose congestion, No Mouth pain, No Mouth swelling, No Throat pain, No Throat swelling; Other (Epistaxis) Cardiovascular: Chest Pain Respiratory: No Cough, No Dry, No Shortness of breath, No SOB with excertion, No Wheezing, No Hemoptysis, No Pleuritic Pain, No Sputum, No Other Genitourinary: No Dysuria, No Frequency, No Incontinence, No Hematuria, No Retention, No Other Musculoskeletal: No other, No neck pain, No shoulder pain, No arm pain, No back pain, No hand pain, No leg pain, No foot pain Skin: No Rash, No Lesions, No Jaundice, No Bruising, No Other Objective Vitals Vital Signs Date Time Temp Pulse Resp B/P (MAP) Pulse Ox O2 Delivery O2 Flow Rate FiO2 09/15/24 13:00 85 13 161/77 (105) 94 09/15/24 08:00 97.8 97.8 09/15/24 06:38 Room Air* 0 21 Medications Current Medications Medications Dose Ordered Sig/Lizzie Route Start Time Stop Time Status Last Admin Dose Admin Nitroglycerin 0.4 mg Q5MINP PRN SL 09/15/24 07:15 Morphine Sulfate 2 mg Q30M PRN IV 09/15/24 07:15 Pantoprazole Sodium 40 mg BID IV 09/15/24 08:07 09/15/24 08:14 40 MG Morphine Sulfate 1 mg Q4HPRN PRN IV 09/15/24 07:15 Acetaminophen/ Hydrocodone Bitart 1 tab Q6HPRN PRN PO 09/15/24 07:15 Acetaminophen 500 mg Q8HP PRN PO 09/15/24 07:15 Ondansetron HCl 4 mg Q6HP PRN IV 09/15/24 07:15 Amlodipine Besylate 10 mg DAILY PO 09/15/24 10:00 09/15/24 10:27 10 MG Furosemide 40 mg BID PO 09/15/24 10:00 09/15/24 10:27 40 MG Insulin Glargine 15 units DAILY SC 09/15/24 10:00 09/15/24 10:28 15 UNITS Metoprolol Succinate 25 mg DAILY PO 09/15/24 10:00 09/15/24 10:26 25 MG Diagnostic Test (Pha) 1 strip ACHS 09/15/24 11:30 09/15/24 11:50 1 STRIP Insulin Human Regular ACHS SC 09/15/24 11:30 09/15/24 11:55 8 UNITS Dextrose 50 ml UD PRN IV 09/15/24 07:30 Sucralfate 1 gm BID@0600,2200 PO 09/15/24 09:00 09/15/24 09:16 1 GM Laboratory Results Laboratory Tests 09/15/24 00:32 Chemistry Test 09/15/24 00:32 09/15/24 05:38 Calcium Level 9.3 mg/dL (8.7-10.4) Phosphorus Level 14.8 mg/dL (2.4-5.1) H Coagulation Test 09/15/24 00:32 Prothrombin Time 10.2 sec (9.3-11.8) Prothrombin Time INR 0.96 (0.9-1.15) Lipid panel Test 09/15/24 05:38 Lipase 54 U/L (12-53) H HgA1c, TSH Test 09/15/24 05:38 Hemoglobin A1c 8.1 % A1C (<5.7) H Labs and/or images reviewed: Labs reviewed by me, Image(s) reviewed by me Assessment/Plan Assessment/Plan -chest pain, atypical -ESRD with peritoneal dialysis, consult for Nephrology Hypotension Acidosis -epistaxis tPA Carafate -diabetes mellitus -anemia of chronic disease Time spent 65 minutes Patient is full code Advanced care planning time 20 minutes Plan discussed with: Patient Date of Service: Sep 15, 2024 Billing Provider: VICKI VILLAVICENCIO MD Common Visit Codes: [id number] CARE 30-74 MIN VICKI VILLAVICENCIO MD Sep 15, 2024 14:25
--- NOTE | 2024-09-15 15:09 | DVHINCON2 ---
Date of service: Sep 15, 2024 Referring Physician Clarice Anderson Reason for Consultation Peritoneal dialysis History of Present Illness 63 Y/O F with history of ESRD on PD, DM, and HTN presented with chief complaint of nose bleed, and while in the ER developed chest pain. Troponin is negative x3. K is 3.9 mmol/l, and Hb: 9.9 g/dl. Nephrology consulted for peritoneal dialysis Past Medical History ESRD on PD DM HTN Anemia Hyperphosphatemia Past Surgical History PD catheter placement Allergies: Coded Allergies: No Known Drug Allergy (Verified Allergy, Unknown, 08/15/24) Home Meds Reported Medications B-Complex W/ C & Folic Acid (Mimi-Harish) Tab, 1 TAB OR TID, TAB 09/07/24 Heparin Sodium (Porcine) (Heparin Sodium) 1,000 Unit/Ml Inj, IV, INJ 09/07/24 Insulin Lispro (Insulin Lispro Kwikpen) 100 Unit/Ml Inj, SC, INJ patient on sliding scale 09/07/24 Gentamicin Sulfate (Gentamicin Sulfate) 0.1 % Cre, 1 APPLIC TOP DAILY, #30 GRAMS 1 Refill 09/07/24 Ergocalciferol (VITAMIN D 46281 UNIT) 50,000 [place], 213[address] UNIT PO QWEEKLY, CAP 09/07/24 Doxepin Hcl (Doxepin Hcl) 25 Mg Cap, 1 CAP PO DAILY, #30 CAP 1 Refill 09/07/24 Cephalexin Monohydrate (Cephalexin) 500 Mg Cap, 1 CAP PO BID, #40 CAP 09/07/24 Ferric Citrate (Auryxia) 210 Mg Tab, 420 MG PO TID, TAB 09/07/24 Furosemide (Lasix) 40 Mg Tab, 40 MG PO BID, TAB 09/07/24 Amlodipine Besylate (NORVASC TABLET) 5 Mg Tb, 10 MG PO DAILY, TAB 09/07/24 Metoprolol Succinate (Metoprolol Succinate Er) 25 Mg Tab, 25 MG PO DAILY for 30 Days, MG 09/07/24 Losartan Potassium (Losartan Potassium) 100 Mg Tab, 100 MG PO DAILY for 30 Days, MG 09/07/24 Insulin Glargine (Lantus) 100 Unit/Ml Inj, 15 UNIT SC, INJ 09/07/24 Lactulose (Lactulose) 10 Gm Tyson, 10 GM PO, PACK 09/07/24 Current Medications Current Medications Medications (Trade) Dose Ordered Sig/Lizzie Route PRN Reason Start Time Stop Time Status Last Admin Nitroglycerin (Ntrostat Sublingual) 0.4 mg Q5MINP PRN SL FOR CHEST PAIN 09/15/24 07:15 Morphine Sulfate 2 mg Q30M PRN IV FOR CHEST PAIN 09/15/24 07:15 Pantoprazole Sodium (Protonix) 40 mg BID IV 09/15/24 08:07 09/15/24 08:14 Morphine Sulfate 1 mg Q4HPRN PRN IV SEVERE PAIN (7-10 PAIN SCALE) 09/15/24 07:15 Acetaminophen/ Hydrocodone Bitart (Reasnor 5/325MG Tab) 1 tab Q6HPRN PRN PO MODERATE PAIN (4-6 PAIN SCALE) 09/15/24 07:15 Acetaminophen (Tylenol Tablet Or Capsule) 500 mg Q8HP PRN PO PAIN SCALE 1-3 OR TEMP>100.4 09/15/24 07:15 Ondansetron HCl (Zofran) 4 mg Q6HP PRN IV NAUSEA / VOMITING 09/15/24 07:15 Amlodipine Besylate (Norvasc Tablet) 10 mg DAILY PO 09/15/24 10:00 09/15/24 10:27 Furosemide (Lasix Tablet) 40 mg BID PO 09/15/24 10:00 09/15/24 10:27 Insulin Glargine (Lantus) 15 units DAILY SC 09/15/24 10:00 09/15/24 10:28 Metoprolol Succinate (Toprol Xl) 25 mg DAILY PO 09/15/24 10:00 09/15/24 10:26 Sucralfate (Carafate Susp) 1 gm BID@0600,2200 GT 09/15/24 08:09 09/15/24 08:49 DC Diagnostic Test (Pha) (Accu-Chek Comfort Curve T) 1 strip ACHS 09/15/24 11:30 09/15/24 11:50 Insulin Human Regular (InsuLIN R) ACHS SC 09/15/24 11:30 09/15/24 11:55 Dextrose 50 ml UD PRN IV Blood Sugar LESS THAN 60 09/15/24 07:30 Sucralfate (Carafate Tab) 1 gm BID@0600,2200 PO 09/15/24 09:00 09/15/24 09:16 Sevelamer HCl (Renagel) 1,600 mg TIDWM PO 09/15/24 18:00 Peritoneal Dialysis Solution 2,000 ml @ 0 mls/hr Q6HR IP 09/15/24 18:00 Family History: FH: schizophrenia G8 FATHER Review of Systems as per HPI, all other systems were reviewed and are negative. H&P Exam Vital Signs/I&O Vital Sign Date Time Temp Pulse Resp B/P (MAP) Pulse Ox O2 Delivery O2 Flow Rate FiO2 09/15/24 13:00 85 13 161/77 (105) 94 09/15/24 08:00 97.8 97.8 09/15/24 06:38 Room Air* 0 21 Physical Exam Gen: NAD, AAOx3 HEENT: NC,AT Lungs: CTA b/l Cardiac: RRR, no murmur Abd: + PD catheter, exit site clear Ext: no edema Neuro: no focal deficits Labs/Diagnostic Data Labs/Diagnostic Data Laboratory Tests Test 09/15/24 11:47 09/15/24 10:18 09/15/24 08:51 09/15/24 05:38 Range/Units POC Glucose 336 H 331 H 70-106 mg/dl Troponin I High Sensitivity 10 10 </=34 ng/L Hemoglobin A1c 8.1 H <5.7 % A1C Uric Acid 5.6 3.1-7.8 mg/dL Phosphorus Level 14.8 H 2.4-5.1 mg/dL Lipase 54 H 12-53 U/L Test 09/15/24 00:32 Range/Units White Blood Count 10.4 4.4-10.8 10^3/uL Red Blood Count 3.75 L 4.0-5.20 10^6/uL Hemoglobin 9.9 L 12.2-16.2 g/dL Hematocrit 29.5 L 36.0-46.0 % Mean Corpuscular Volume 78.6 L 80.0-100.0 fL Mean Corpuscular Hemoglobin 26.4 L 28.0-32.0 pg Mean Corpuscular Hemoglobin Concent 33.6 32.0-36.0 g/dL Red Cell Distribution Width 15.4 H 11.8-14.3 % Platelet Count 349 140-450 10^3/uL Mean Platelet Volume 8.1 6.9-10.8 fL Neutrophils (%) (Auto) 77.8 37.0-80.0 % Lymphocytes (%) (Auto) 13.5 10.0-50.0 % Monocytes (%) (Auto) 6.5 0.0-12.0 % Eosinophils (%) (Auto) 1.6 0.0-7.0 % Basophils (%) (Auto) 0.6 0.0-2.0 % Neutrophils # (Auto) 8.1 1.6-8.6 10 ^3/uL Lymphocytes # (Auto) 1.4 0.4-5.4 10 ^3/uL Monocytes # (Auto) 0.7 0-1.3 10 ^3/uL Eosinophils # (Auto) 0.2 0-0.8 10 ^3/uL Basophils # (Auto) 0.1 0-0.2 10 ^3/uL Nucleated Red Blood Cells 0.0 % Prothrombin Time 10.2 9.3-11.8 sec Prothrombin Time INR 0.96 0.9-1.15 Sodium Level 135 L 136-145 mmol/L Potassium Level 3.9 3.5-5.1 mmol/L Chloride Level 94 L 98-107 mmol/L Carbon Dioxide Level 21 20-31 mmol/L Anion Gap 20 H 5-15 Blood Urea Nitrogen 65 H 9-23 mg/dL Creatinine 8.82 H 0.550-1.02 mg/dL Glomerular Filtration Rate Calc 5 >90 mL/min BUN/Creatinine Ratio 7.4 L 10.0-20.0 Serum Glucose 216 H 74-106 mg/dL Calcium Level 9.3 8.7-10.4 mg/dL Troponin I High Sensitivity 11 </=34 ng/L Assessment Assessment: ESRD on PD Chest pain r/o ACS. serial troponin negative Epistaxis Anemia of CKD Hyperphosphatemia Dm HTN Hyponatremia Azotemia Metabolic acidosis Plan: She has brought in her Cycler and will do her PD overnight. continue Metoprolol, Lasix, and Amlodipine cardiology consult monitor H&H start Sevelamer 1600 mg PO TID with meals Plan discussed with: Patient JANETTE CASTANO MD Sep 15, 2024 15:09
[2024-09-15] MEDS: LACTULOSE 20Gm/30ML SOLN PO ONE (15:15)
[2024-09-15] MEDS: ONDANSETRON HCL 4 MG/2 ML VIAL IV PRN (16:02)
[2024-09-15] MEDS: MORPHINE SULFATE INJ 2 MG/ml SYRG IV PRN (16:03)
[2024-09-15] MEDS: SEVELAMER 800 MG TAB PO SCH (17:55)
[2024-09-15] MEDS: HYDROcodone-ACET 5/325MG TAB PO PRN (18:16)
[2024-09-15 19:30] VITALS: PULSE 86
[2024-09-15 21:15] VITALS: BP 111/72; PULSE 91; RESP 20; TEMP 98.1; O2SAT 86
[2024-09-15] MEDS: PERITONEAL DIALYSIS 2.5% SOLN 2,000 ML IP SCH (23:30)
[2024-09-16] VITALS (8 sets, daily range): BP systolic 124–147; BP diastolic 54–69; PULSE 71–91; RESP 16–19; TEMP 97.3–98.4; O2SAT 92–100
[2024-09-16 06:00] LABS: Basophils # (auto) 0 10 ^3/uL (0-0.2); Basophils % (auto) 0.3 % (0.0-2.0); Eosinophils # (auto) 0.1 10 ^3/uL (0-0.8); Neutrophils # (auto) 6.4 10 ^3/uL (1.6-8.6); White Blood Cell 8.8 10^3/uL (4.4-10.8)
[2024-09-16 06:03] LABS: Eosinophils % (auto) 0.8 % (0.0-7.0); Lymphocytes # (auto) 1.8 10 ^3/uL (0.4-5.4); Lymphocytes % (auto) 20.4 % (10.0-50.0); Mean Corpuscular Hemoglobin 26.3 pg (28.0-32.0); Mean Corpuscular Hgb Conc. 33.5 g/dL (32.0-36.0); Mean Corpuscular Volume 78.6 fL (80.0-100.0); Monocytes # (auto) 0.5 10 ^3/uL (0-1.3); Monocytes % (auto) 6.2 % (0.0-12.0); Neutrophils % (auto) 72.3 % (37.0-80.0); Platelet Count (auto) 292 10^3/uL (140-450); Red Blood Cells 3.43 10^6/uL (4.0-5.20); Red Cell Distribution Width 15.5 % (11.8-14.3)
[2024-09-16 06:30] LABS: Alanine Aminotransferase 18 U/L (7-40); Albumin 3.9 g/dL (3.2-4.8); Alkaline Phosphatase 53 U/L (46-116); Anion Gap 22 (5-15); BUN/Creatinine Ratio 7.8 (10.0-20.0); Calcium 9.2 mg/dL (8.7-10.4); Carbon Dioxide 22 mmol/L (20-31); Total Protein 6.4 g/dL (5.7-8.2)
[2024-09-16 06:42] LABS: Aspartate Aminotransferase 10 U/L (13-40); Bilirubin, Total 0.2 mg/dL (0.2-1.0); Blood Urea Nitrogen 71 mg/dL (9-23); Chloride 92 mmol/L (98-107); Glucose 121 mg/dL (74-106); Potassium 3.3 mmol/L (3.5-5.1); Sodium 136 mmol/L (136-145)
--- NOTE | 2024-09-16 10:46 | DVHPN2 ---
Reviewed: Care Plan, H&P, Labs, Medications, Previous Orders, Radiology Changes from previous H/P or p: No Changes Eyes: No Pain, No Vision change, No Conjunctivae inflammation, No Eyelid inflammation, No Other, No Redness ENT: No Ear pain, No Ear discharge, No Nose pain, No Nose discharge, No Nose congestion, No Mouth pain, No Mouth swelling, No Throat pain, No Throat swelling; Other (Epistaxis) Cardiovascular: Chest Pain Respiratory: No Cough, No Dry, No Shortness of breath, No SOB with excertion, No Wheezing, No Hemoptysis, No Pleuritic Pain, No Sputum, No Other Genitourinary: No Dysuria, No Frequency, No Incontinence, No Hematuria, No Retention, No Other Musculoskeletal: No other, No neck pain, No shoulder pain, No arm pain, No back pain, No hand pain, No leg pain, No foot pain Skin: No Rash, No Lesions, No Jaundice, No Bruising, No Other Objective Vitals Vital Signs Date Time Temp Pulse Resp B/P (MAP) Pulse Ox O2 Delivery O2 Flow Rate FiO2 09/16/24 09:18 80 128/54 09/16/24 09:00 97.3 16 100 97.3 09/16/24 08:00 Nasal Cannula* 2 28 Intake/Output Intake and Output 09/16/24 07:00 Intake Total 9000 ml Balance 9000 ml Intake Oral 0 ml Intraperitoneal 9000 ml Medications Current Medications Medications Dose Ordered Sig/Lizzie Route Start Time Stop Time Status Last Admin Dose Admin Nitroglycerin 0.4 mg Q5MINP PRN SL 09/15/24 07:15 Morphine Sulfate 2 mg Q30M PRN IV 09/15/24 07:15 Pantoprazole Sodium 40 mg BID IV 09/15/24 08:07 09/16/24 09:19 40 MG Morphine Sulfate 1 mg Q4HPRN PRN IV 09/15/24 07:15 09/15/24 16:03 1 MG Acetaminophen/ Hydrocodone Bitart 1 tab Q6HPRN PRN PO 09/15/24 07:15 09/16/24 09:18 1 TAB Acetaminophen 500 mg Q8HP PRN PO 09/15/24 07:15 Ondansetron HCl 4 mg Q6HP PRN IV 09/15/24 07:15 09/15/24 16:02 4 MG Amlodipine Besylate 10 mg DAILY PO 09/15/24 10:00 09/16/24 09:17 10 MG Furosemide 40 mg BID PO 09/15/24 10:00 09/16/24 09:18 40 MG Insulin Glargine 15 units DAILY SC 09/15/24 10:00 09/16/24 09:30 15 UNITS Metoprolol Succinate 25 mg DAILY PO 09/15/24 10:00 09/16/24 09:18 25 MG Diagnostic Test (Pha) 1 strip ACHS 09/15/24 11:30 09/16/24 07:02 1 STRIP Insulin Human Regular ACHS SC 09/15/24 11:30 09/16/24 00:19 3 UNITS Dextrose 50 ml UD PRN IV 09/15/24 07:30 Sucralfate 1 gm BID@0600,2200 PO 09/15/24 09:00 09/16/24 05:46 1 GM Sevelamer HCl 1,600 mg TIDWM PO 09/15/24 18:00 09/16/24 09:17 1,600 MG Peritoneal Dialysis Solution 2,000 ml @ 0 mls/hr Q6HR IP 09/15/24 18:00 09/15/24 23:30 9,000 MLS/HR Laboratory Results Laboratory Tests 09/16/24 05:33 Chemistry Test 09/16/24 05:33 Albumin 3.9 g/dL (3.2-4.8) Calcium Level 9.2 mg/dL (8.7-10.4) Total Protein 6.4 g/dL (5.7-8.2) LFT Test 09/16/24 05:33 Alanine Aminotransferase (ALT) 18 U/L (7-40) Alkaline Phosphatase 53 U/L (46-116) Aspartate Amino Transferase (AST) 10 U/L (13-40) L Total Bilirubin 0.2 mg/dL (0.2-1.0) Labs and/or images reviewed: Labs reviewed by me, Image(s) reviewed by me Assessment/Plan Assessment/Plan Atypical chest pain ESRD with peritoneal dialysis, consult for Nephrology Dr. Duffy, patient getting peritoneal dialysis at bed side Hypotension Acidosis -epistaxis : Resolved Carafate -diabetes mellitus -anemia of chronic disease Dysphagia: Consult for GI Dr. De La Rosa History of colon polyps status post polypectomy by GI Dr. Ashby three days ago Time spent 55 minutes Patient is full code Advanced care planning time 20 minutes Plan discussed with: Patient My Orders Orders - VICKI VILLAVICENCIO MD Procedure Category Date Status Time *Dr. Duffy [facility] -Da CONS 09/15/24 Transmitted [place] 14:24 Date of Service: Sep 16, 2024 Billing Provider: VICKI VILLAVICENCIO MD Common Visit Codes: [id number] INP/OBS CARE(HIGH) VICKI VILLAVICENCIO MD Sep 16, 2024 10:46
[2024-09-16] MEDS: LACTULOSE 20Gm/30ML SOLN PO ONE (11:19)
--- NOTE | 2024-09-16 11:56 | DVHPN2 ---
Progress Note - Dictate Date Seen: Sep 16, 2024 Medical Necessity Reason Pt with a Central, PICC or Fol: No Subjective no new symptoms vital signs Vital Sign Date Time Temp Pulse Resp B/P (MAP) Pulse Ox O2 Delivery O2 Flow Rate FiO2 09/16/24 09:18 80 128/54 09/16/24 09:00 97.3 16 100 97.3 09/16/24 08:00 Nasal Cannula* 2 28 Total Intake and Output 09/15/24 09/15/24 09/16/24 15:00 23:00 07:00 Intake Total 0 ml 9000 ml Balance 0 ml 9000 ml medications Current Medications Medications Dose Ordered Sig/Lizzie Route Start Time Stop Time Status Last Admin Dose Admin Nitroglycerin 0.4 mg Q5MINP PRN SL 09/15/24 07:15 Morphine Sulfate 2 mg Q30M PRN IV 09/15/24 07:15 Pantoprazole Sodium 40 mg BID IV 09/15/24 08:07 09/16/24 09:19 40 MG Morphine Sulfate 1 mg Q4HPRN PRN IV 09/15/24 07:15 09/15/24 16:03 1 MG Acetaminophen/ Hydrocodone Bitart 1 tab Q6HPRN PRN PO 09/15/24 07:15 09/16/24 09:18 1 TAB Acetaminophen 500 mg Q8HP PRN PO 09/15/24 07:15 Ondansetron HCl 4 mg Q6HP PRN IV 09/15/24 07:15 09/15/24 16:02 4 MG Amlodipine Besylate 10 mg DAILY PO 09/15/24 10:00 09/16/24 09:17 10 MG Furosemide 40 mg BID PO 09/15/24 10:00 09/16/24 09:18 40 MG Insulin Glargine 15 units DAILY SC 09/15/24 10:00 09/16/24 09:30 15 UNITS Metoprolol Succinate 25 mg DAILY PO 09/15/24 10:00 09/16/24 09:18 25 MG Diagnostic Test (Pha) 1 strip ACHS 09/15/24 11:30 09/16/24 11:19 1 STRIP Insulin Human Regular ACHS SC 09/15/24 11:30 09/16/24 11:21 3 UNITS Dextrose 50 ml UD PRN IV 09/15/24 07:30 Sucralfate 1 gm BID@0600,2200 PO 09/15/24 09:00 09/16/24 05:46 1 GM Sevelamer HCl 1,600 mg TIDWM PO 09/15/24 18:00 09/16/24 11:20 1,600 MG Peritoneal Dialysis Solution 2,000 ml @ 0 mls/hr Q6HR IP 09/16/24 20:00 objective Gen: NAD, AAOx3 HEENT: NC,AT Lungs: CTA b/l Cardiac: RRR, no murmur Abd: + PD catheter, exit site clear Ext: no edema Neuro: no focal deficits laboratory and microbiology Laboratory Tests 09/16/24 05:33 Test 09/16/24 05:33 Range/Units Serum Glucose 121 H 74-106 mg/dL Assessment/Plan Assessment: ESRD on PD Chest pain r/o ACS. serial troponin negative Epistaxis Anemia of CKD Hyperphosphatemia Dm HTN Hyponatremia Azotemia Metabolic acidosis Plan: PD overnight with cycler and patients at home prescription. continue Metoprolol, Lasix, and Amlodipine cardiology consult monitor H&H start Sevelamer 1600 mg PO TID with meals Plan discussed with: Patient JANETTE CASTANO MD Sep 16, 2024 11:56
[2024-09-16] MEDS: PERITONEAL DIALYSIS 2.5% SOLN 2,000 ML IP SCH (20:00)
--- NOTE | 2024-09-16 22:02 | DVHINCON2 ---
Date of service: Sep 16, 2024 Referring Physician Brandon Linton Reason for Consultation Odynophagia History of Present Illness The patient was a 63-year-old female presenting to the emergency room with severe epistaxis that lasted over 1 hour in addition to burning in her chest. Patient states that she was had intermittent substernal chest burning, for the past one week. Patient denies having any dizziness, nausea, near-syncope, or diaphoresis. Patient was going to be discharged from the emergency room when she began having this chest burning. She reports that she did have outpatient cardiology workup by Dr. Calero without any acute findings per the patient. Ech ocardiogram was reviewed, essentially unremarkable. Patient has not had a prior endoscopy. She did had a recent colonoscopy for screening with Dr. Raheel Ashby on the 13 of September. Two small benign sigmoid polyps were removed and otherwise the postop course was uncomplicated Past Medical History Cardiovascular: HTN, hyperipidemia Renal/: Chronic renal failure on peritoneal dialysis Endocrine: Diabetes Past Surgical History Left eye prosthesis, corneal surgery Right eye cataract Recent colonoscopy Family History: FH: schizophrenia G8 FATHER Allergies: Coded Allergies: No Known Drug Allergy (Verified Allergy, Unknown, 08/15/24) Home Meds Reported Medications B-Complex W/ C & Folic Acid (Mimi-Harish) Tab, 1 TAB OR TID, TAB 09/07/24 Heparin Sodium (Porcine) (Heparin Sodium) 1,000 Unit/Ml Inj, IV, INJ 09/07/24 Insulin Lispro (Insulin Lispro Kwikpen) 100 Unit/Ml Inj, SC, INJ patient on sliding scale 09/07/24 Gentamicin Sulfate (Gentamicin Sulfate) 0.1 % Cre, 1 APPLIC TOP DAILY, #30 GRAMS 1 Refill 09/07/24 Ergocalciferol (VITAMIN D 59435 UNIT) 50,000 [place], [address] UNIT PO QWEEKLY, CAP 09/07/24 Doxepin Hcl (Doxepin Hcl) 25 Mg Cap, 1 CAP PO DAILY, #30 CAP 1 Refill 09/07/24 Cephalexin Monohydrate (Cephalexin) 500 Mg Cap, 1 CAP PO BID, #40 CAP 09/07/24 Ferric Citrate (Auryxia) 210 Mg Tab, 420 MG PO TID, TAB 09/07/24 Furosemide (Lasix) 40 Mg Tab, 40 MG PO BID, TAB 09/07/24 Amlodipine Besylate (NORVASC TABLET) 5 Mg Tb, 10 MG PO DAILY, TAB 09/07/24 Metoprolol Succinate (Metoprolol Succinate Er) 25 Mg Tab, 25 MG PO DAILY for 30 Days, MG 09/07/24 Losartan Potassium (Losartan Potassium) 100 Mg Tab, 100 MG PO DAILY for 30 Days, MG 09/07/24 Insulin Glargine (Lantus) 100 Unit/Ml Inj, 15 UNIT SC, INJ 09/07/24 Lactulose (Lactulose) 10 Gm Tyson, 10 GM PO, PACK 09/07/24 Current Medications Current Medications Medications (Trade) Dose Ordered Sig/Lizzie Route PRN Reason Start Time Stop Time Status Last Admin Peritoneal Dialysis Solution 2,000 ml @ 0 mls/hr Q9H IP 09/16/24 20:00 Vital Signs Vital Signs Date Time Temp Pulse Resp B/P (MAP) Pulse Ox O2 Delivery O2 Flow Rate FiO2 09/16/24 16:52 98.4 86 16 147/54 (85) 94 98.4 09/16/24 08:00 Nasal Cannula* 2 28 Physical Exam General: NAD, AAOX3 HEENT: PERRL, no scleral icterus, normal hearing, gums without lesions or bleeding, oropharynx clear without erythema or exudate. Neck: Supple without enlargement of the thyroid, or lymphadenopathy. Chest: Normal size and shape, no tenderness, lung dee clear to auscultation and percussion, nonlabored breathing. Heart: RRR, no murmur Abdomen: non-distended, no tenderness to palpation, +BS, no hepatosplenomegaly Extremities: no edema Neurological: CN II-XII intact, sensation intact in all extremities, 5+ strength in all extremities Skin: No rashes, No jaundice Labs/Diagnostic Data Labs Test 09/16/24 16:45 09/16/24 05:33 09/15/24 08:51 09/15/24 05:38 Range/Units POC Glucose 66 L 70-106 mg/dl White Blood Count 8.8 4.4-10.8 10^3/uL Red Blood Count 3.43 L 4.0-5.20 10^6/uL Hemoglobin 9.0 L 12.2-16.2 g/dL Hematocrit 27.0 L 36.0-46.0 % Mean Corpuscular Volume 78.6 L 80.0-100.0 fL Mean Corpuscular Hemoglobin 26.3 L 28.0-32.0 pg Mean Corpuscular Hemoglobin Concent 33.5 32.0-36.0 g/dL Red Cell Distribution Width 15.5 H 11.8-14.3 % Platelet Count 292 140-450 10^3/uL Mean Platelet Volume 8.0 6.9-10.8 fL Neutrophils (%) (Auto) 72.3 37.0-80.0 % Lymphocytes (%) (Auto) 20.4 10.0-50.0 % Monocytes (%) (Auto) 6.2 0.0-12.0 % Eosinophils (%) (Auto) 0.8 0.0-7.0 % Basophils (%) (Auto) 0.3 0.0-2.0 % Neutrophils # (Auto) 6.4 1.6-8.6 10 ^3/uL Lymphocytes # (Auto) 1.8 0.4-5.4 10 ^3/uL Monocytes # (Auto) 0.5 0-1.3 10 ^3/uL Eosinophils # (Auto) 0.1 0-0.8 10 ^3/uL Basophils # (Auto) 0 0-0.2 10 ^3/uL Nucleated Red Blood Cells 0.0 % Sodium Level 136 136-145 mmol/L Potassium Level 3.3 L 3.5-5.1 mmol/L Chloride Level 92 L 98-107 mmol/L Carbon Dioxide Level 22 20-31 mmol/L Anion Gap 22 H 5-15 Blood Urea Nitrogen 71 H 9-23 mg/dL Creatinine 9.14 H 0.550-1.02 mg/dL Glomerular Filtration Rate Calc 5 >90 mL/min BUN/Creatinine Ratio 7.8 L 10.0-20.0 Serum Glucose 121 H 74-106 mg/dL Calcium Level 9.2 8.7-10.4 mg/dL Total Bilirubin 0.2 0.2-1.0 mg/dL Aspartate Amino Transferase (AST) 10 L 13-40 U/L Alanine Aminotransferase (ALT) 18 7-40 U/L Alkaline Phosphatase 53 46-116 U/L Total Protein 6.4 5.7-8.2 g/dL Albumin 3.9 3.2-4.8 g/dL Troponin I High Sensitivity 10 </=34 ng/L Hemoglobin A1c 8.1 H <5.7 % A1C Uric Acid 5.6 3.1-7.8 mg/dL Phosphorus Level 14.8 H 2.4-5.1 mg/dL Lipase 54 H 12-53 U/L Test 09/15/24 00:32 Range/Units Prothrombin Time 10.2 9.3-11.8 sec Prothrombin Time INR 0.96 0.9-1.15 Microbiology Date/Time Source Procedure Growth Status 09/15/24 14:48 Nose MRSA Screen - Final Complete CXR IMPRESSION: Heart appears normal in size. The lungs appear clear without focal airspace opacity, effusion, or pneumothorax Problems(with codes): (1) GERD (gastroesophageal reflux disease) (2) Odynophagia (3) Chest pain (4) Epistaxis Plan/Recommendation Plan IV Protonix 40 mg q.12 hours Carafate suspension 1 g p.o. 4 times a day DC aspirin NSAIDs smoking alcohol Tentative plan for doing an endoscopy on 09/17/2024 if the patient is stable Plan discussed with: Patient, Other SRINI VASQUEZ MD Sep 16, 2024 22:02
[2024-09-16] MEDS: SUCRALFATE 1 GM/10 ML ORAL SUSP PO SCH (22:40)
[2024-09-17] VITALS (11 sets, daily range): BP systolic 129–154; BP diastolic 56–69; PULSE 78–95; RESP 11–20; TEMP 97.9–99.1; O2SAT 91–100
--- NOTE | 2024-09-17 06:22 | DVH ---
EXAM: XR Abdomen, 1 View CLINICAL INDICATION: chest pain TECHNIQUE: Frontal supine view of the abdomen/pelvis. COMPARISON: None FINDINGS: GASTROINTESTINAL TRACT: Fecal retention in the colon consistent with constipation. No dilation. BONES/JOINTS: Unremarkable. No acute fracture. OTHER FINDINGS: . Tubular structure projects over the left lower abdomen. IMPRESSION: Fecal retention in the colon consistent with constipation.
--- NOTE | 2024-09-17 10:53 | DVHPN2 ---
Reviewed: Care Plan, H&P, Labs, Medications, Previous Orders, Radiology Changes from previous H/P or p: No Changes Eyes: No Pain, No Vision change, No Conjunctivae inflammation, No Eyelid inflammation, No Other, No Redness ENT: No Ear pain, No Ear discharge, No Nose pain, No Nose discharge, No Nose congestion, No Mouth pain, No Mouth swelling, No Throat pain, No Throat swelling; Other (Epistaxis) Cardiovascular: Chest Pain Respiratory: No Cough, No Dry, No Shortness of breath, No SOB with excertion, No Wheezing, No Hemoptysis, No Pleuritic Pain, No Sputum, No Other Genitourinary: No Dysuria, No Frequency, No Incontinence, No Hematuria, No Retention, No Other Musculoskeletal: No other, No neck pain, No shoulder pain, No arm pain, No back pain, No hand pain, No leg pain, No foot pain Skin: No Rash, No Lesions, No Jaundice, No Bruising, No Other Objective Vitals Vital Signs Date Time Temp Pulse Resp B/P (MAP) Pulse Ox O2 Delivery O2 Flow Rate FiO2 09/17/24 09:46 84 136/56 09/17/24 08:30 98.3 18 91 98.3 09/17/24 08:00 Nasal Cannula* 2 28 Intake/Output Intake and Output 09/17/24 07:00 Intake Total 1050 ml Output Total 0 ml Balance 1050 ml Intake Oral 1050 ml Output Stool Total 0 ml # Voids 5 # Bowel Movements 1 Medications Current Medications Medications Dose Ordered Sig/Lizzie Route Start Time Stop Time Status Last Admin Dose Admin Nitroglycerin 0.4 mg Q5MINP PRN SL 09/15/24 07:15 Morphine Sulfate 2 mg Q30M PRN IV 09/15/24 07:15 Pantoprazole Sodium 40 mg BID IV 09/15/24 08:07 09/17/24 09:42 40 MG Morphine Sulfate 1 mg Q4HPRN PRN IV 09/15/24 07:15 09/15/24 16:03 1 MG Acetaminophen/ Hydrocodone Bitart 1 tab Q6HPRN PRN PO 09/15/24 07:15 09/16/24 22:41 1 TAB Acetaminophen 500 mg Q8HP PRN PO 09/15/24 07:15 Ondansetron HCl 4 mg Q6HP PRN IV 09/15/24 07:15 3/8/25 16:02 4 MG Amlodipine Besylate 10 mg DAILY PO 09/15/24 10:00 09/17/24 09:45 10 MG Furosemide 40 mg BID PO 09/15/24 10:00 09/17/24 09:45 40 MG Insulin Glargine 15 units DAILY SC 09/15/24 10:00 09/16/24 09:30 15 UNITS Metoprolol Succinate 25 mg DAILY PO 09/15/24 10:00 09/17/24 09:46 25 MG Diagnostic Test (Pha) 1 strip ACHS 09/15/24 11:30 09/17/24 06:08 1 STRIP Insulin Human Regular ACHS SC 09/15/24 11:30 09/16/24 11:21 3 UNITS Dextrose 50 ml UD PRN IV 09/15/24 07:30 Sucralfate 1 gm BID@0600,2200 PO 09/15/24 09:00 09/17/24 06:06 1 GM Sevelamer HCl 1,600 mg TIDWM PO 09/15/24 18:00 09/16/24 17:48 1,600 MG Peritoneal Dialysis Solution 2,000 ml @ 0 mls/hr Q9H IP 09/16/24 20:00 Sucralfate 1 gm TID@0600,1130,2200 PO 09/16/24 22:00 09/17/24 06:06 1 GM Laboratory Results Laboratory Tests 09/16/24 05:33 Microbiology Microbiology Date/Time Source Procedure Growth Status 09/15/24 14:48 Nose MRSA Screen - Final Complete Labs and/or images reviewed: Labs reviewed by me, Image(s) reviewed by me Assessment/Plan Assessment/Plan Atypical chest pain ESRD with peritoneal dialysis, consult for Nephrology Dr. Duffy, patient getting peritoneal dialysis at bed side Hypotension Acidosis -epistaxis : Resolved Carafate -diabetes mellitus -anemia of chronic disease Dysphagia: Getting EGD by Dr. Robison today History of colon polyps status post polypectomy by GI Dr. Ashby three days ago Time spent 55 minutes Patient is full code Advanced care planning time 20 minutes Plan discussed with: Patient My Orders Orders - VICKI VILLAVICENCIO MD Procedure Category Date Status Time * [facility] [employer] Consultant CONS 09/16/24 Transmitted 10:52 Peritoneal Dialysis PHA 09/16/24 In Process 2.5% Soln 20:00 Date of Service: Sep 17, 2024 Billing Provider: VICKI VILLAVICENCIO MD Common Visit Codes: [id number] INP/OBS CARE(HIGH) VICKI VILLAVICENCIO MD Sep 17, 2024 10:53
[2024-09-17] MEDS ORDERED: SODIUM CHLORIDE LOCK 10 ML ONE (10:56)
[2024-09-17] MEDS: LACTULOSE 20Gm/30ML SOLN PO ONE (11:42)
[2024-09-17] MEDS: LIDOCAINE VISCOUS 2% 15ML UD ONE (13:55)
[2024-09-17] MEDS: diphenhdrAMINE HCL 50 MG/1 ML VL ONE (14:02)
[2024-09-17] MEDS: fentaNYL CITRATE 100 MCG/2 ML VL ONE (14:02)
[2024-09-17] MEDS: MIDAZOLAM HCL 5 MG/ML-1ML VIAL ONE (14:02)
--- NOTE | 2024-09-17 14:25 | DVHOP2 ---
Operative Report DATE OF OPERATION: 09/17/24 PROCEDURE: Upper Endoscopy with biopsy. PREOPERATIVE INDICATION: The patient is a 63 -year-old female undergoing endoscopy for atypical chest pain GERD nausea and vomiting POSTOPERATIVE DIAGNOSES: 1. Patient had a 1-2 cm sliding-type hiatal hernia with slightly irregular squa mocolumnar junction grade B linear erosive esophagitis for with four or five superficial distal esophageal ulcers from which biopsies were obtained 2. Moderate gastroparesis with retained gastric food contents ; no fresh or old blood in the upper GI tract 3. Mild duodenitis of the duodenal bulb otherwise normal examination up to the 2nd and 3rd part of the duodenum PROCEDURE PERFORMED BY: Srini Robison GI NURSE: Bre SCOPE: Olympus videoendoscope. ASA CLASS: 3. PREOPERATIVE MEDICATIONS: Versed 3 mg, Fentanyl 75 mcg, Benadryl 50 mg I administered moderate sedation throughout this _7_ minutes procedure. An independent trained observer pushed medications at my direction, and monitored the patient's level of consciousness and physiological status throughout. PROCEDURE IN DETAIL: After obtaining an informed consent, the patient was placed on left lateral decubitus position. The patient was then sedated with the above medications. A bite block was placed between her teeth. The endoscope was then passed through the oropharynx, into the esophagus, and through the stomach and pylorus up to the second and third part of the duodenum. The endoscope was then withdrawn. The 2nd and 3rd part of the duodenum were normal in the duodenal bulb showed mild duodenitis The pre-pyloric area and antrum showed minimal gastritis. On retroflexion and straight on view the patient had moderate gastroparesis There were retained gastric food contents. There was no fresh or old blood in the stomach. Gastric biopsies were obtained and duodenal biopsies were obtained The endoscope was then withdrawn into the distal esophagus where the patient had a 1-2 cm sliding-type hiatal hernia with grade B linear erosive esophagitis. Patient had four or five superficial linear distal esophageal ulcers extending into the distal 3-5 cm of the esophagus from which biopsies were obtained. The remaining distal and proximal esophagus and oropharynx were unremarkable The patient tolerated the procedure well without difficulty. COMPLICATIONS : None SPECIMENS: Duodenal biopsies Gastric biopsies DISPOSITION: Transfer back to the floor Stable PLAN: 1. Await for biopsy result 2. Will place pt on Protonix 40 mg bid IV 3. Carafate suspension 1 g p.o. 4 times a day 4. Reglan 5 mg IV q.8 hours 5. Resume full liquid diet advance as tolerated 6. Avoid narcotics and medications that could slow down gastric motility SRINI ROBISON MD Sep 17, 2024 14:24
--- NOTE | 2024-09-17 14:51 | DVHPN2 ---
Progress Note - Dictate Date Seen: Sep 17, 2024 Medical Necessity Reason Pt with a Central, PICC or Fol: No Subjective No acute events. Endorses constipation vital signs Vital Sign Date Time Temp Pulse Resp B/P (MAP) Pulse Ox O2 Delivery O2 Flow Rate FiO2 09/17/24 14:14 Mask 6.0 99 09/17/24 14:14 90 11 99 09/17/24 14:14 98.7 132/62 (85) 98.7 Total Intake and Output 09/16/24 09/16/24 09/17/24 15:00 23:00 07:00 Intake Total 200 ml 850 ml Output Total 0 ml Balance 200 ml 850 ml medications Current Medications Medications Dose Ordered Sig/Lizzie Route Start Time Stop Time Status Last Admin Dose Admin Nitroglycerin 0.4 mg Q5MINP PRN SL 09/15/24 07:15 Morphine Sulfate 2 mg Q30M PRN IV 09/15/24 07:15 Pantoprazole Sodium 40 mg BID IV 09/15/24 08:07 09/17/24 09:42 40 MG Morphine Sulfate 1 mg Q4HPRN PRN IV 09/15/24 07:15 09/15/24 16:03 1 MG Acetaminophen/ Hydrocodone Bitart 1 tab Q6HPRN PRN PO 09/15/24 07:15 09/16/24 22:41 1 TAB Acetaminophen 500 mg Q8HP PRN PO 09/15/24 07:15 Ondansetron HCl 4 mg Q6HP PRN IV 09/15/24 07:15 09/15/24 16:02 4 MG Amlodipine Besylate 10 mg DAILY PO 09/15/24 10:00 09/17/24 09:45 10 MG Furosemide 40 mg BID PO 09/15/24 10:00 09/17/24 09:45 40 MG Insulin Glargine 15 units DAILY SC 09/15/24 10:00 09/16/24 09:30 15 UNITS Metoprolol Succinate 25 mg DAILY PO 09/15/24 10:00 09/17/24 09:46 25 MG Diagnostic Test (Pha) 1 strip ACHS 09/15/24 11:30 09/17/24 11:02 1 STRIP Insulin Human Regular ACHS SC 09/15/24 11:30 09/16/24 11:21 3 UNITS Dextrose 50 ml UD PRN IV 09/15/24 07:30 Sevelamer HCl 1,600 mg TIDWM PO 09/15/24 18:00 09/16/24 17:48 1,600 MG Peritoneal Dialysis Solution 2,000 ml @ 0 mls/hr Q9H IP 09/16/24 20:00 Sucralfate 1 gm TID@0600,1130,2200 PO 09/16/24 22:00 09/17/24 11:01 1 GM Metoclopramide HCl 5 mg Q8HR IV 09/17/24 22:00 UNV objective Gen: NAD, AAOx3 HEENT: NC,AT Lungs: CTA b/l Cardiac: RRR, no murmur Abd: + PD catheter, exit site clear Ext: no edema Neuro: no focal deficits laboratory and microbiology Laboratory Tests 09/16/24 05:33 Test 09/16/24 05:33 Range/Units Serum Glucose 121 H 74-106 mg/dL Assessment/Plan Assessment ESRD on PD Chest pain r/o ACS. serial troponin negative Epistaxis Anemia of CKD Hyperphosphatemia Constipation Dm HTN Hyponatremia Azotemia Metabolic acidosis Plan: PD overnight with cycler and patients at home prescription. continue Metoprolol, Lasix, and Amlodipine Bowel regimen cardiology consult monitor H&H Sevelamer 1600 mg PO TID with meals Thank you very much for allowing us to participate in the care of this patient Plan discussed with: Patient REMINGTON DURBIN MD Sep 17, 2024 14:51
[2024-09-17] MEDS: METOCLOPRAMIDE HCL 5MG/ml INJ 2ml VIAL IV SCH (22:01)
[2024-09-18] VITALS (7 sets, daily range): BP systolic 117–138; BP diastolic 52–65; PULSE 88–103; RESP 16–18; TEMP 98.2–99.7; O2SAT 91–95
[2024-09-18 06:28] LABS: Basophils # (auto) 0 10 ^3/uL (0-0.2); Basophils % (auto) 0.4 % (0.0-2.0); Hemoglobin 9.3 g/dL (12.2-16.2)
[2024-09-18 06:31] LABS: Eosinophils # (auto) 0.2 10 ^3/uL (0-0.8); Eosinophils % (auto) 2.4 % (0.0-7.0); Hematocrit 27.3 % (36.0-46.0); Lymphocytes # (auto) 1.2 10 ^3/uL (0.4-5.4); Lymphocytes % (auto) 11.6 % (10.0-50.0); Mean Corpuscular Hemoglobin 26.8 pg (28.0-32.0); Mean Corpuscular Volume 78.6 fL (80.0-100.0); Monocytes # (auto) 0.7 10 ^3/uL (0-1.3); Monocytes % (auto) 6.6 % (0.0-12.0); Platelet Count (auto) 307 10^3/uL (140-450); Red Blood Cells 3.47 10^6/uL (4.0-5.20); Red Cell Distribution Width 15.6 % (11.8-14.3); White Blood Cell 10.1 10^3/uL (4.4-10.8)
[2024-09-18 06:44] LABS: Alanine Aminotransferase 16 U/L (7-40); Albumin 4.1 g/dL (3.2-4.8); Alkaline Phosphatase 59 U/L (46-116); Anion Gap 16 (5-15); BUN/Creatinine Ratio 5.8 (10.0-20.0); Calcium 9.4 mg/dL (8.7-10.4); Carbon Dioxide 25 mmol/L (20-31); Glucose 88 mg/dL (74-106); Sodium 137 mmol/L (136-145); Total Protein 6.6 g/dL (5.7-8.2)
[2024-09-18 06:50] LABS: Aspartate Aminotransferase 11 U/L (13-40); Bilirubin, Total 0.2 mg/dL (0.2-1.0); Blood Urea Nitrogen 54 mg/dL (9-23); Chloride 96 mmol/L (98-107); Potassium 3.5 mmol/L (3.5-5.1)
--- NOTE | 2024-09-18 11:12 | DVHPN2 ---
Reviewed: Care Plan, H&P, Labs, Medications, Previous Orders, Radiology Changes from previous H/P or p: No Changes Eyes: No Pain, No Vision change, No Conjunctivae inflammation, No Eyelid inflammation, No Other, No Redness ENT: No Ear pain, No Ear discharge, No Nose pain, No Nose discharge, No Nose congestion, No Mouth pain, No Mouth swelling, No Throat pain, No Throat swelling; Other (Epistaxis) Cardiovascular: Chest Pain Respiratory: No Cough, No Dry, No Shortness of breath, No SOB with excertion, No Wheezing, No Hemoptysis, No Pleuritic Pain, No Sputum, No Other Genitourinary: No Dysuria, No Frequency, No Incontinence, No Hematuria, No Retention, No Other Musculoskeletal: No other, No neck pain, No shoulder pain, No arm pain, No back pain, No hand pain, No leg pain, No foot pain Skin: No Rash, No Lesions, No Jaundice, No Bruising, No Other Objective Vitals Vital Signs Date Time Temp Pulse Resp B/P (MAP) Pulse Ox O2 Delivery O2 Flow Rate FiO2 09/18/24 09:39 99.7 98 16 138/65 (89) 94 99.7 09/18/24 08:00 Room Air* 0 21 Intake/Output Intake and Output 09/18/24 07:00 Intake Total 328 ml Balance 328 ml Intake Oral 318 ml IV Total 10 ml # Voids 4 Medications Current Medications Medications Dose Ordered Sig/Lizzie Route Start Time Stop Time Status Last Admin Dose Admin Nitroglycerin 0.4 mg Q5MINP PRN SL 09/15/24 07:15 Morphine Sulfate 2 mg Q30M PRN IV 09/15/24 07:15 Pantoprazole Sodium 40 mg BID IV 09/15/24 08:07 09/18/24 09:36 40 MG Morphine Sulfate 1 mg Q4HPRN PRN IV 09/15/24 07:15 09/15/24 16:03 1 MG Acetaminophen/ Hydrocodone Bitart 1 tab Q6HPRN PRN PO 09/15/24 07:15 09/17/24 22:01 1 TAB Acetaminophen 500 mg Q8HP PRN PO 09/15/24 07:15 Ondansetron HCl 4 mg Q6HP PRN IV 09/15/24 07:15 09/15/24 16:02 4 MG Amlodipine Besylate 10 mg DAILY PO 09/15/24 10:00 09/18/24 09:34 10 MG Furosemide 40 mg BID PO 09/15/24 10:00 09/18/24 09:35 40 MG Insulin Glargine 15 units DAILY SC 09/15/24 10:00 09/18/24 09:57 15 UNITS Metoprolol Succinate 25 mg DAILY PO 09/15/24 10:00 09/18/24 09:36 25 MG Diagnostic Test (Pha) 1 strip ACHS 09/15/24 11:30 09/18/24 06:11 1 STRIP Insulin Human Regular ACHS SC 09/15/24 11:30 09/17/24 22:34 4 UNITS Dextrose 50 ml UD PRN IV 09/15/24 07:30 Sevelamer HCl 1,600 mg TIDWM PO 09/15/24 18:00 09/18/24 09:34 1,600 MG Peritoneal Dialysis Solution 2,000 ml @ 0 mls/hr Q9H IP 09/16/24 20:00 Sucralfate 1 gm TID@0600,1130,2200 PO 09/16/24 22:00 09/18/24 06:12 1 GM Metoclopramide HCl 5 mg Q8HR IV 09/17/24 22:00 09/18/24 06:12 5 MG Laboratory Results Laboratory Tests 09/18/24 05:24 Chemistry Test 09/18/24 05:24 Albumin 4.1 g/dL (3.2-4.8) Calcium Level 9.4 mg/dL (8.7-10.4) Total Protein 6.6 g/dL (5.7-8.2) LFT Test 09/18/24 05:24 Alanine Aminotransferase (ALT) 16 U/L (7-40) Alkaline Phosphatase 59 U/L (46-116) Aspartate Amino Transferase (AST) 11 U/L (13-40) L Total Bilirubin 0.2 mg/dL (0.2-1.0) Microbiology Microbiology Date/Time Source Procedure Growth Status 09/15/24 14:48 Nose MRSA Screen - Final Complete Labs and/or images reviewed: Labs reviewed by me, Image(s) reviewed by me Assessment/Plan Assessment/Plan Atypical chest pain ESRD with peritoneal dialysis, consult for Nephrology Dr. Duffy, patient getting peritoneal dialysis at bed side Hypotension Acidosis -epistaxis : Resolved Carafate -diabetes mellitus -anemia of chronic disease Dysphagia: Erosive esophagitis with 4-5 distal esophageal ulcers gastroparesis and duodenitis by EGD by Dr. Phyllis Robison on 09/17/24 History of colon polyps status post polypectomy by GI Dr. Ashby three days ago Time spent 55 minutes Patient is full code Advanced care planning time 20 minutes Plan discussed with: Patient Date of Service: Sep 18, 2024 Billing Provider: VICKI VILLAVICENCIO MD Common Visit Codes: [id number] INP/OBS CARE(HIGH) VICKI VILLAVICENCIO MD Sep 18, 2024 11:12
[2024-09-18] MEDS ORDERED: SUCR1TAB31 PO (11:25)
[2024-09-18] MEDS ORDERED: METO-281 PO (11:25)
[2024-09-18] MEDS ORDERED: PANT40T PO (11:25)
--- NOTE | 2024-09-18 11:34 | DVHDS2 ---
Discharge Summary Date of Admission Sep 15, 2024 at 07:15 Date of Discharge: Sep 18, 2024 Admitting Diagnosis Chest pain Wounds: EGD Labs/Diagnostic Data: Laboratory Results Test 09/18/24 11:04 09/18/24 05:24 09/15/24 08:51 09/15/24 05:38 POC Glucose 267 mg/dl (70-106) White Blood Count 10.1 10^3/uL (4.4-10.8) Red Blood Count 3.47 10^6/uL (4.0-5.20) Hemoglobin 9.3 g/dL (12.2-16.2) Hematocrit 27.3 % (36.0-46.0) Mean Corpuscular Volume 78.6 fL (80.0-100.0) Mean Corpuscular Hemoglobin 26.8 pg (28.0-32.0) Mean Corpuscular Hemoglobin Concent 34.0 g/dL (32.0-36.0) Red Cell Distribution Width 15.6 % (11.8-14.3) Platelet Count 307 10^3/uL (140-450) Mean Platelet Volume 8.1 fL (6.9-10.8) Neutrophils (%) (Auto) 79.0 % (37.0-80.0) Lymphocytes (%) (Auto) 11.6 % (10.0-50.0) Monocytes (%) (Auto) 6.6 % (0.0-12.0) Eosinophils (%) (Auto) 2.4 % (0.0-7.0) Basophils (%) (Auto) 0.4 % (0.0-2.0) Neutrophils # (Auto) 8.0 10 ^3/uL (1.6-8.6) Lymphocytes # (Auto) 1.2 10 ^3/uL (0.4-5.4) Monocytes # (Auto) 0.7 10 ^3/uL (0-1.3) Eosinophils # (Auto) 0.2 10 ^3/uL (0-0.8) Basophils # (Auto) 0 10 ^3/uL (0-0.2) Nucleated Red Blood Cells 0.0 % Sodium Level 137 mmol/L (136-145) Potassium Level 3.5 mmol/L (3.5-5.1) Chloride Level 96 mmol/L (98-107) Carbon Dioxide Level 25 mmol/L (20-31) Anion Gap 16 (5-15) Blood Urea Nitrogen 54 mg/dL (9-23) Creatinine 9.39 mg/dL (0.550-1.02) Glomerular Filtration Rate Calc 4 mL/min (>90) BUN/Creatinine Ratio 5.8 (10.0-20.0) Serum Glucose 88 mg/dL (74-106) Calcium Level 9.4 mg/dL (8.7-10.4) Total Bilirubin 0.2 mg/dL (0.2-1.0) Aspartate Amino Transferase (AST) 11 U/L (13-40) Alanine Aminotransferase (ALT) 16 U/L (7-40) Alkaline Phosphatase 59 U/L (46-116) Total Protein 6.6 g/dL (5.7-8.2) Albumin 4.1 g/dL (3.2-4.8) Troponin I High Sensitivity 10 ng/L (</=34) Hemoglobin A1c 8.1 % A1C (<5.7) Uric Acid 5.6 mg/dL (3.1-7.8) Phosphorus Level 14.8 mg/dL (2.4-5.1) Lipase 54 U/L (12-53) Test 09/15/24 00:32 Prothrombin Time 10.2 sec (9.3-11.8) Prothrombin Time INR 0.96 (0.9-1.15) Other Laboratory Tests 09/18/24 05:24 Brief Hx & Hospital Course: 63-year-old female with a ESRD on peritoneal dialysis hypotension diabetes anemia of chronic disease came in complaining of epigastric pain and chest pain troponin negative x3 found to have noncardiac chest pain received peritoneal dialysis by Dr. Duffy patient also mild episode of epistaxis which resolved. EGD by Dr. Robison showed esophagitis with a 4-5 distal esophageal ulcers gastroparesis and duodenitis placed on pantoprazole and Carafate and Reglan. Patient feels better and being discharged home. Prescription for pantoprazole Carafate and Reglan transmitted to pharmacy. She will follow up with the primary Dr. She was advised to follow up with GI Dr. Phyllis Robison for the biopsy result in 10 days Consults/Reason for consult GI Dr. Phyllis Robison Nephrology Dr. Duffy Operations or Procedures EGD Condition at Discharge: Fair Final Diagnosis/Problems List Atypical chest pain ESRD with peritoneal dialysis, consult for Nephrology Dr. Duffy, patient getting peritoneal dialysis at bed side Hypotension Acidosis -epistaxis : Resolved Carafate -diabetes mellitus -anemia of chronic disease Dysphagia: Erosive esophagitis with 4-5 distal esophageal ulcers gastroparesis and duodenitis by EGD by Dr. Phyllis Robison on 09/17/24 History of colon polyps status post polypectomy by GI Dr. Ashby three days ago Discharge Disposition: Home Discharge Instruct/Medications Diet: Regular Activity: Light activity Follow Up/Referral: Follow up with the primary Dr Dr. Toure in one week Resume all previous home medications Follow up with Dr. Duffy for your peritoneal dialysis Follow up with GI Dr. Phyllis Robison in 10 days for the biopsy result Medications: Pantoprazole Carafate Reglan Transmitted to pharmacy 35 (Time taken for discharge summary 35 minutes) Discharge Statement: "Patient was advised to return to the ER or call 911 if any headaches, dizziness, shortness of breath, chest pain, abdominal pain, bleeding, fevers, or worsening of medical condition. Patient was counseled about treatment plan, medications, possible side effects, patientverbalized understanding. All questions were answered to the best of my ability. This discharge took greater then 30 minutes in planning, reviewing documentation, counseling the patient, and discussing with other team members." ASSESSMENT ASSESSMENT Hospital Course Improved Assessment Atypical chest pain ESRD with peritoneal dialysis, consult for Nephrology Dr. Duffy, patient getting peritoneal dialysis at bed side Hypotension Acidosis -epistaxis : Resolved Carafate -diabetes mellitus -anemia of chronic disease Dysphagia: Erosive esophagitis with 4-5 distal esophageal ulcers gastroparesis and duodenitis by EGD by Dr. Phyllis Robison on 09/17/24 History of colon polyps status post polypectomy by GI Dr. Ashby three days ago Date of Service: Sep 18, 2024 Billing Provider: VICKI VILLAVICENCIO MD Common Visit Codes: 83375-VCQ/OBS DISCH DAY >30min VICKI VILLAVICENCIO MD Sep 18, 2024 11:34
--- NOTE | 2024-09-18 11:38 | DVHPN2 ---
Progress Note Date Seen: Sep 18, 2024 Resident Creating Document: JESSICA XAVIER RESIDENT Medical Necessity Reason Pt with a Central, PICC or Fol: No Subjective Review of Systems Denies any further epistaxis or bleeding Last bowel movement 5 days ago, complains of constipation Denies any nausea or vomiting 2 small benign sigmoid polyps removed during recent colonoscopy on 09/13/[address] Ashby Stable H&H Objective vital signs Vital Sign Date Time Temp Pulse Resp B/P (MAP) Pulse Ox O2 Delivery O2 Flow Rate FiO2 09/18/24 09:39 99.7 98 16 138/65 (89) 94 99.7 09/18/24 08:00 Room Air* 0 21 Total Intake and Output 09/17/24 09/17/24 09/18/24 15:00 23:00 07:00 Intake Total 10 ml 118 ml 200 ml Balance 10 ml 118 ml 200 ml medications Current Medications Medications Dose Ordered Sig/Lizzie Route Start Time Stop Time Status Last Admin Dose Admin Nitroglycerin 0.4 mg Q5MINP PRN SL 09/15/24 07:15 Morphine Sulfate 2 mg Q30M PRN IV 09/15/24 07:15 Pantoprazole Sodium 40 mg BID IV 09/15/24 08:07 09/18/24 09:36 40 MG Morphine Sulfate 1 mg Q4HPRN PRN IV 09/15/24 07:15 09/15/24 16:03 1 MG Acetaminophen/ Hydrocodone Bitart 1 tab Q6HPRN PRN PO 09/15/24 07:15 09/17/24 22:01 1 TAB Acetaminophen 500 mg Q8HP PRN PO 09/15/24 07:15 Ondansetron HCl 4 mg Q6HP PRN IV 09/15/24 07:15 09/15/24 16:02 4 MG Amlodipine Besylate 10 mg DAILY PO 09/15/24 10:00 09/18/24 09:34 10 MG Furosemide 40 mg BID PO 09/15/24 10:00 09/18/24 09:35 40 MG Insulin Glargine 15 units DAILY SC 09/15/24 10:00 09/18/24 09:57 15 UNITS Metoprolol Succinate 25 mg DAILY PO 09/15/24 10:00 09/18/24 09:36 25 MG Diagnostic Test (Pha) 1 strip ACHS 09/15/24 11:30 09/18/24 11:26 1 STRIP Insulin Human Regular ACHS SC 09/15/24 11:30 09/18/24 11:26 6 UNITS Dextrose 50 ml UD PRN IV 09/15/24 07:30 Sevelamer HCl 1,600 mg TIDWM PO 09/15/24 18:00 09/18/24 11:18 1,600 MG Peritoneal Dialysis Solution 2,000 ml @ 0 mls/hr Q9H IP 09/16/24 20:00 Sucralfate 1 gm TID@0600,1130,2200 PO 09/16/24 22:00 09/18/24 11:18 1 GM Metoclopramide HCl 5 mg Q8HR IV 09/17/24 22:00 09/18/24 06:12 5 MG Examination General Appearance: Cooperative. Well developed. Well nourished. NAD Head Exam: Normal inspection Neck Exam: Normal inspection. Non-tender. Normal alignment Pulmonary/Respiratory: Chest non-tender. Clear bilateral breath sounds, no crackles, no wheezing. Cardiovascular/Chest: Regular rate and rhythm. No murmurs. No JVD. Abdominal Exam: Soft. normal abdomen, no visible veins, Nontender. No hepatospenomegaly. No masses Ankle Exam: Negative ankle edema Neuro/Mental Status: A&O x4. Coherent. Skin Exam: Normal inspection. Normal color. Warm. Dry laboratory and microbiology Laboratory Tests 09/18/24 05:24 Test 09/18/24 05:24 Range/Units Serum Glucose 88 74-106 mg/dL Microbiology Date/Time Source Procedure Growth Status 09/15/24 14:48 Nose MRSA Screen - Final Complete Labs and/or images reviewed: Labs reviewed by me, Image(s) reviewed by me Problem List/Assessment/Plan Problem List/Assessment/Plan GERD Odynophagia ESRD on PD Anemia chronic kidney disease Constipation Chest pain Epistaxis Plan: IV Protonix 40 mg b.i.d. Carafate 1 g q.i.d. Discontinue aspirin, NSAIDs, smoking, alcohol and spicy foods Endoscopy showed hiatal hernia. Grade B linear erosive esophagitis with distal esophageal ulcers. Moderate gastroparesis and duodenitis. Patient was started on Reglan Q 8 hours Fleet mineral oil enema Lactulose t.i.d. Please follow up with GI in the outpatient clinic Plan discussed with patient Plan discussed with Plan discussed with: Patient, Other (RN) JESSICA XAVIER RESIDENT Sep 18, 2024 11:37
[2024-09-18] MEDS ORDERED: FLEET ENEMA(ADULT) 135 ML PR ONE (11:45)
[2024-09-18] MEDS ORDERED: FLEET MINERAL OIL ENEMA 133 ML PR ONE (12:45)
--- NOTE | 2024-09-18 13:01 | DVHPN2 ---
Progress Note - Dictate Date Seen: Sep 18, 2024 Medical Necessity Reason Pt with a Central, PICC or Fol: No Subjective No acute events. Continues to have constipation vital signs Vital Sign Date Time Temp Pulse Resp B/P (MAP) Pulse Ox O2 Delivery O2 Flow Rate FiO2 09/18/24 12:16 98.7 101 18 117/64 (81) 95 98.7 09/18/24 08:00 Room Air* 0 21 Total Intake and Output 09/17/24 09/17/24 09/18/24 15:00 23:00 07:00 Intake Total 10 ml 118 ml 200 ml Balance 10 ml 118 ml 200 ml medications Current Medications Medications Dose Ordered Sig/Lizzie Route Start Time Stop Time Status Last Admin Dose Admin Nitroglycerin 0.4 mg Q5MINP PRN SL 09/15/24 07:15 Morphine Sulfate 2 mg Q30M PRN IV 09/15/24 07:15 Pantoprazole Sodium 40 mg BID IV 09/15/24 08:07 09/18/24 09:36 40 MG Morphine Sulfate 1 mg Q4HPRN PRN IV 09/15/24 07:15 09/15/24 16:03 1 MG Acetaminophen/ Hydrocodone Bitart 1 tab Q6HPRN PRN PO 09/15/24 07:15 09/17/24 22:01 1 TAB Acetaminophen 500 mg Q8HP PRN PO 09/15/24 07:15 Ondansetron HCl 4 mg Q6HP PRN IV 09/15/24 07:15 09/15/24 16:02 4 MG Amlodipine Besylate 10 mg DAILY PO 09/15/24 10:00 09/18/24 09:34 10 MG Furosemide 40 mg BID PO 09/15/24 10:00 09/18/24 09:35 40 MG Insulin Glargine 15 units DAILY SC 09/15/24 10:00 09/18/24 09:57 15 UNITS Metoprolol Succinate 25 mg DAILY PO 09/15/24 10:00 09/18/24 09:36 25 MG Diagnostic Test (Pha) 1 strip ACHS 09/15/24 11:30 09/18/24 11:26 1 STRIP Insulin Human Regular ACHS SC 09/15/24 11:30 09/18/24 11:26 6 UNITS Dextrose 50 ml UD PRN IV 09/15/24 07:30 Sevelamer HCl 1,600 mg TIDWM PO 09/15/24 18:00 09/18/24 11:18 1,600 MG Peritoneal Dialysis Solution 2,000 ml @ 0 mls/hr Q9H IP 09/16/24 20:00 Sucralfate 1 gm TID@0600,1130,2200 PO 09/16/24 22:00 09/18/24 11:18 1 GM Metoclopramide HCl 5 mg Q8HR IV 09/17/24 22:00 09/18/24 06:12 5 MG Lactulose 30 ml TID PO 09/18/24 12:45 objective Gen: NAD, AAOx3 HEENT: NC,AT Lungs: CTA b/l Cardiac: RRR, no murmur Abd: + PD catheter, exit site clear Ext: no edema Neuro: no focal deficits laboratory and microbiology Laboratory Tests 09/18/24 05:24 Test 09/18/24 05:24 Range/Units Serum Glucose 88 74-106 mg/dL Assessment/Plan Assessment ESRD on PD Chest pain r/o ACS. serial troponin negative Epistaxis Anemia of CKD Hyperphosphatemia Constipation Dm HTN Hyponatremia Azotemia Metabolic acidosis Plan: Discontinue Fleet enema. Do not use phosphate based enemas in dialysis patients. Lactulose 30 mL p.o. t.i.d. until bowel movement Advance diet as tolerated per GI PD overnight with cycler and patients at home prescription. continue Metoprolol, Lasix, and Amlodipine cardiology consult monitor H&H Sevelamer 1600 mg PO TID with meals Plan of care discussed with the RN After bowel movement no objection from Nephrology to discharge Thank you very much for allowing us to participate in the care of this patient Dietary Evaluation Review Comments: 1. Recommend CHO consistent 60 gm/meal, 2 gm K, 1000 mg phos diet upon D/C 2. Continue phos-binders at meals TID or w/ snacks 3. Recommend more aggressive bowel regimen, stooling prior to D/C 4. Dry wt's s/p PD sessions Expected Outcomes/Goals: Improved lab values, weight maintenance. Plan discussed with: Patient REMINGTON DURBIN MD Sep 18, 2024 13:01
[2024-09-18] MEDS ORDERED: DOCUSATE SOD 100 MG CAP PO PRN ×2 (13:15→14:00)
[2024-09-18] MEDS: LACTULOSE 20Gm/30ML SOLN PO SCH (14:35)
== END 2024-09-18 19:23 | disposition home or self-care (01) | DRG 380 ==
LOC: EDBD 23:56 → ER 23:56 → OVERFLOW 09-15 07:15 → TELE-EAST 09-15 21:15
PROVIDERS: ADMIT Family Medicine; ATTEND Family Medicine
PROC: 3E1M39Z Irrigation of Peritoneal Cavity using Dialysate, Percutaneous Approach (ICD-10-PCS; 2024-09-16)
PROC: 0DB68ZX Excision of Stomach, Via Natural or Artificial Opening Endoscopic, Diagnostic (ICD-10-PCS; 2024-09-17)
PROC: 0DB38ZX Excision of Lower Esophagus, Via Natural or Artificial Opening Endoscopic, Diagnostic (ICD-10-PCS; 2024-09-17)
PROC: 0DB98ZX Excision of Duodenum, Via Natural or Artificial Opening Endoscopic, Diagnostic (ICD-10-PCS; principal; 2024-09-17 13:54)
DX: K22.10 Ulcer of esophagus without bleeding (principal); N18.6 End stage renal disease; E87.1 Hypo-osmolality and hyponatremia; I12.0 Hypertensive chronic kidney disease with stage 5 chronic kidney disease or end stage renal disease; E87.20 Acidosis, unspecified; K31.84 Gastroparesis; K29.80 Duodenitis without bleeding; E11.43 Type 2 diabetes mellitus with diabetic autonomic (poly)neuropathy; D63.1 Anemia in chronic kidney disease; E11.22 Type 2 diabetes mellitus with diabetic chronic kidney disease; E83.39 Other disorders of phosphorus metabolism; K21.9 Gastro-esophageal reflux disease without esophagitis; K44.9 Diaphragmatic hernia without obstruction or gangrene; K59.00 Constipation, unspecified; R04.0 Epistaxis; Z99.2 Dependence on renal dialysis; Z79.4 Long term (current) use of insulin; Z79.899 Other long term (current) drug therapy; Z79.1 Long term (current) use of non-steroidal anti-inflammatories (NSAID); Z79.891 Long term (current) use of opiate analgesic; Z79.2 Long term (current) use of antibiotics; Z81.8 Family history of other mental and behavioral disorders; Z97.0 Presence of artificial eye; Z79.84 Long term (current) use of oral hypoglycemic drugs; Z86.0100 Personal history of colon polyps, unspecified; Z87.19 Personal history of other diseases of the digestive system
CPT/HCPCS: 36415; 43239; 71045; 74018; 80048; 80053; 82962; 83036; 83690; 84100; 84484; 84550; 85025; 85610; 87081; 93005; 96372; 96374; 96375; 99291; G0378; J1815; J2250; J2405; J2470; Q0162